=== PATIENT | male | born 1950 | race Caucasian/White ===

== ENCOUNTER → 2016-10-28 | Day surgery (SDC) | payer OTHER ==
[2016-10-15 13:20] VITALS: BMI 32.0
[~2016-10-28] VITALS: Ht 172.7 cm; Wt 95.5 kg
[~2016-10-28] MED LIST: ASPI-435 PO; CLB/200 PO; CYAN10005 PO; LIDOCAINE HCL 2% 2 ML VIAL (20MG/ML) ONE; LISI10TA PO; OMEP20TA14 PO; PROPOFOL IV EMULSION 10 MG/ML 20 ML VIAL IV ONE; SIMV20TA2 PO; SODIUM CHLORIDE 0.9% 500ML 500 ML IV ONE; TRAM-10 PO
[2016-10-28 09:47] VITALS: Ht 172.7 cm; Wt 95.5 kg
--- NOTE | 2016-10-28 10:17 | Endo History and Physical ---
History & Physical Date of Service: Oct 28, 2016. Chief Complaint: Screening Referring Physician: Dr. Treadwell History of Present Illness 66 yo CM who presents for screening colonoscopy. Past Surgical History Hx Cardiac Surgery: No Hx Internal Defibrillator: No Hx Pacemaker: No Hx Abdominal Surgery: No Hx of Implantable Prosthesis: No Hx Post-Op Nausea and Vomiting: No Hx Cancer Surgery: No Hx Thoracic Surgery: No Hx Orthopedic: No Hx Urinary Tract Surgery: No Family History None Social History Smoking Status: Former Smoker Hx Substance Use: No Hx Alcohol Use: Yes (A COUPLE BEERS DAILY) Allergies Coded Allergies: No Known Allergies (Verified , 10/28/16) Current Medications Reported Home Medications Medications Dose Route/Sig Max Daily Dose Days Date Category Ultram (Tramadol HCl) 50 Mg Tab 1-2 Tabs PO Q4H PRN 10/15/16 Reported Vitamin B-12 (Cyanocobalamin) 1,000 Mcg Tab 1,000 Mcg PO QAM 10/15/16 Reported CeleBREX (Celecoxib) 200 Mg Cap 200 Mg PO QAM 10/15/16 Reported Zocor (Simvastatin) 20 Mg Tab 20 Mg PO QAM 10/15/16 Reported Prinivil (Lisinopril) 10 Mg Tab 10 Mg PO QAM 10/15/16 Reported Aspirin 81 (Aspirin) 81 Mg Tab 1 Tab PO QAM 10/15/16 Reported Vital Signs Weight (Kilograms): 95.45 Height (Feet): 5 Height (Inches): 8 Date Time Temp Pulse Resp B/P (MAP) Pulse Ox O2 Delivery O2 Flow Rate FiO2 10/28/16 09:57 36.8 92 18 157/87 (110) 96 Room Air Physical Exam General Appearance: WD/WN, no apparent distress Respiratory/Chest: Auscultation: breath sounds normal Cardiovascular: Heart Auscultation: RRR Abdomen: Bowel Sounds: normal Inspection & Palpation: soft, non-distended, no tenderness, guarding & rebound Assessment and Plan Assessment: 66 yo CM who presents for screening colonoscopy. Plan: Proceed with colonoscopy.
--- NOTE | 2016-10-28 11:21 | GI REPORT ---
Procedure Date: 10/28/2016 10:15 AM Procedure: Colonoscopy Indications: Screening for colorectal malignant neoplasm Medicines: Monitored Anesthesia Care Complications: No immediate complications. Estimated Blood Loss: Estimated blood loss: none. Procedure: Pre-Anesthesia Assessment: - Prior to the procedure, a History and Physical was performed, and patient medications and allergies were reviewed. The patient's tolerance of previous anesthesia was also reviewed. The risks and benefits of the procedure and the sedation options and risks were discussed with the patient. All questions were answered, and informed consent was obtained. Prior Anticoagulants: The patient has taken aspirin, last dose was 1 day prior to procedure. ASA Grade Assessment: II - A patient with mild systemic disease. After reviewing the risks and benefits, the patient was deemed in satisfactory condition to undergo the procedure. After I obtained informed consent, the scope was passed under direct vision. Throughout the procedure, the patient's blood pressure, pulse, and oxygen saturations were monitored continuously. The scope was introduced through the anus and advanced to the terminal ileum. The colonoscopy was performed without difficulty. The patient tolerated the procedure well. The quality of the bowel preparation was good. The terminal ileum, the appendiceal orifice and the rectum were photographed. Findings: Two sessile polyps were found in the rectum and in the sigmoid colon. The polyps were 5 to 6 mm in size. These polyps were removed with a hot snare. Resection and retrieval were complete. Multiple small-mouthed diverticula were found in the sigmoid colon. Non-bleeding internal hemorrhoids were found during retroflexion. The hemorrhoids were small. Impression: - Two 5 to 6 mm polyps in the rectum and in the sigmoid colon, removed with a hot snare. Resected and retrieved. - Diverticulosis in the sigmoid colon. - Non-bleeding internal hemorrhoids. Recommendation: - Resume previous diet. - Continue present medications. - Repeat colonoscopy for surveillance based on pathology results. - Return to primary care physician as previously scheduled. Balaji Liang, DO 10/28/2016 11:20:34 AM This report has been signed electronically. Note Initiated On: 10/28/2016 10:15 AM I attest to the content of the Intraoperative Record and orders documented therein, exceptions below
--- NOTE | 2016-10-28 11:25 | Discharge Instructions ---
Endoscopy Patient Instructions Date / Procedure(s) Performed Oct 28, 2016. Colonoscopy Allergy Information Coded Allergies: No Known Allergies (Verified , 10/28/16) Discharge Date / Findings Oct 28, 2016. Colon polyp Rectal polyp Diverticulosis Internal hemorrhoids Medication Instructions OK to resume all medications today as prescribed Reported Home Medications Medications Dose Route/Sig Max Daily Dose Days Date Category Ultram (Tramadol HCl) 50 Mg Tab 1-2 Tabs PO Q4H PRN 10/15/16 Reported Vitamin B-12 (Cyanocobalamin) 1,000 Mcg Tab 1,000 Mcg PO QAM 10/15/16 Reported CeleBREX (Celecoxib) 200 Mg Cap 200 Mg PO QAM 10/15/16 Reported Zocor (Simvastatin) 20 Mg Tab 20 Mg PO QAM 10/15/16 Reported Prinivil (Lisinopril) 10 Mg Tab 10 Mg PO QAM 10/15/16 Reported Aspirin 81 (Aspirin) 81 Mg Tab 1 Tab PO QAM 10/15/16 Reported Provider Instructions Activity Restrictions - No exercising or heavy lifting for 24 hours. - Do not drink alcohol the day of the procedure. - Do not drive a car or operate machinery until the day after the procedure. - Do not make any important decisions or sign important papers in 24 hours after the procedure. Following Day: - Return to full activity which may include returning to work/school. Diet Start your diet with liquids and light foods (jello, soup, juice, toast). Then eat your usual diet if not nauseated. Treatment For Common After Affects For mild abdominal pain, bloating, or excessive gas: - Rest - Eat lightly - Lie on right side Follow-Up Information Follow-up with as scheduled Anesthesia Information What You Should Know You have had a procedure that required some medicine to reduce anxiety and discomfort. This treatment is called moderate sedation. After receiving the treatment, you may be sleepy, but you will be able to breathe on your own. The effects of the treatment may last for several hours. Follow these instructions along with Activity/Diet recommendations noted above: * Do NOT do anything where dizziness or clumsiness would be dangerous. * Rest quietly at home today, then you can be up and about tomorrow. * Have a responsible person stay with you the rest of today. * You may have had an I.V. today. If so, you may take the dressing off later today. Recommendations Call your doctor if: * Trouble breathing * Continuous vomiting for more than 24 hours * Temperature above 101 degrees * Severe abdominal pain or bloating * Pain not relieved by pain medicine ordered * There is increased drainage or redness from any incision * A large amount of rectal bleeding greater than 2-3 tablespoons. (If you had a polyp/s removed or have hemorrhoids, a small amount of blood - from the rectum is to be expected.) * You have any unanswered questions or concerns. IN THE EVENT OF A SERIOUS EMERGENCY, GO TO THE NEAREST EMERGENCY ROOM Your discharge instructions were prepared by provider Balaji Liang. Patient Instructions Signature Page Anastacio Rand Patient (or Guardian) Signature/Date: I have read and understand the instructions given to me by my caregivers. Caregiver/RN/Doctor Signature/Date: The above-named patient and/or guardian has received patient instructions on this date. + Original Patient Signature Page (only) stays with chart. Please make copy for patient.
[2016-10-28 11:49] VITALS: BP 140/93; PULSE 68; O2SAT 95
--- NOTE | 2016-10-28 11:56 | Anesthesiology Progress Note ---
Anesthesia Post Op Note Date & Time Oct 28, 2016 at 11:56 Vital Signs Pain Intensity: 0 Vital Signs Past 12 Hours Date Time Temp Pulse Resp B/P (MAP) Pulse Ox O2 Delivery O2 Flow Rate FiO2 10/28/16 11:49 68 16 140/93 (109) 95 Room Air 10/28/16 11:34 70 16 123/91 (102) 95 Room Air 10/28/16 11:19 72 18 123/81 (95) 95 Room Air 10/28/16 09:57 36.8 92 18 157/87 (110) 96 Room Air Notes Mental Status: alert / awake / arousable, participated in evaluation Pt Amnestic to Procedure: Yes Nausea / Vomiting: adequately controlled Pain: adequately controlled Airway Patency, RR, SpO2: stable & adequate BP & HR: stable & adequate Hydration State: stable & adequate Anesthetic Complications: no major complications apparent
== END | disposition home or self-care (01) ==
LOC: C.GI 09:25
PROVIDERS: ATTEND Internal Medicine
DX: Z12.11 Encounter for screening for malignant neoplasm of colon (principal); D12.5 Benign neoplasm of sigmoid colon; D12.8 Benign neoplasm of rectum; K64.8 Other hemorrhoids; K57.30 Diverticulosis of large intestine without perforation or abscess without bleeding; I10 Essential (primary) hypertension; E78.5 Hyperlipidemia, unspecified; E66.9 Obesity, unspecified; Z79.82 Long term (current) use of aspirin; Z87.891 Personal history of nicotine dependence

== ENCOUNTER → 2016-10-31 | Outpatient (CLI) | payer OTHER ==
[~2016-10-31] MED LIST changes: -LIDOCAINE HCL 2% 2 ML VIAL (20MG/ML) ONE; -OMEP20TA14 PO; -PROPOFOL IV EMULSION 10 MG/ML 20 ML VIAL IV ONE; -SODIUM CHLORIDE 0.9% 500ML 500 ML IV ONE
== END | disposition home or self-care (01) ==
LOC: C.LABBFT 09:08
PROVIDERS: ATTEND Internal Medicine
DX: E78.5 Hyperlipidemia, unspecified (principal)

== ENCOUNTER → 2017-05-05 | Outpatient (CLI) | payer OTHER ==
[2017-05-05 12:40] LABS: BASO % 0.2 %; BASO ABS # 0.01 K/uL (0-0.2); EOS % 1.7 %; EOS ABS # 0.08 K/uL (0-0.5); HEMATOCRIT 43.7 % (42-52); HEMOGLOBIN 14.7 g/dL (14.0-18.0); IG# 0.01 K/uL (0.00-0.02); LYMPH % 36.5 %; LYMPH ABS # 1.75 K/uL (1.2-3.4); MEAN CELL VOLUME 101.4 fL (80-100); MEAN CORPUSCULAR HEMOGLOBIN 34.1 pg (25-34); MEAN CORPUSCULAR HGB CONC 33.6 g/dl (32-36); MEAN PLATELET VOLUME 8.6 fL (7.4-10.4); MONO ABS # 0.53 K/uL (0.11-0.59); NEUT % 50.4 %; NEUT ABS # 2.42 K/uL (1.4-6.5); PLATELET COUNT 235 K/uL (130-400); RED CELL DISTRIBUTION WIDTH CV 12.7 % (11.5-14.5); RED CELL DISTRIBUTION WIDTH SD 47.3 fL (36.4-46.3)
[2017-05-05 13:53] LABS: ALBUMIN 3.8 gm/dl (3.4-5.0); ALT/SGPT 30 U/L (12-78); AST/SGOT 15 U/L (15-37); BLOOD UREA NITROGEN 11 mg/dl (7-18); CALCIUM 8.9 mg/dl (8.5-10.1); CARBON DIOXIDE 29 mmol/L (21-32); CREATININE 0.98 mg/dl (0.60-1.40); GLUCOSE 105 mg/dl (70-99); POTASSIUM 3.9 mmol/L (3.5-5.1); SODIUM 139 mmol/L (136-145)
[2017-05-05 13:57] LABS: ALKALINE PHOSPHATASE 55 U/L (45-117); TOTAL PROTEIN 7.1 gm/dl (6.4-8.2)
== END | disposition home or self-care (01) ==
LOC: C.LABBFT 09:49
PROVIDERS: ATTEND Internal Medicine
DX: N40.0 Benign prostatic hyperplasia without lower urinary tract symptoms (principal); E80.4 Gilbert syndrome; I10 Essential (primary) hypertension

== ENCOUNTER → 2017-05-12 | Outpatient (CLI) | payer OTHER ==
--- NOTE | 2017-05-23 11:34 | CODING QUERY MEDICAL NECESSITY ---
CQSUPPORTING DIAGNOSIS NEEDED A supporting diagnosis is required for the test/procedure performed on this patient in order for us to be reimbursed by the patient's insurance. Please provide a supporting diagnosis for the following test/procedure listed below next to the test name along with your signature. *If there is no additional diagnosis for this patient that would support the following test/procedure please document that below next to the test/procedure. Test(s)/Procedure(s) that require a supporting diagnosis: DOS 05/12/17 VITAMIN B12 TEST FOLIC ACID TEST Provider Signature: Date: Thank you Sima Gibson Health Information Management Once completed, please kindly fax back to [phone] For questions please call [phone]
== END | disposition home or self-care (01) ==
LOC: C.LABBFT 13:44
PROVIDERS: ATTEND Internal Medicine
DX: R19.4 Change in bowel habit (principal); R71.8 Other abnormality of red blood cells

== ENCOUNTER → 2017-05-13 | Outpatient (CLI) | payer OTHER ==
--- NOTE | 2017-05-13 15:45 | DIAGNOSTIC IMAGING REPORT ---
CHEST 2 VIEWS ROUTINE CLINICAL HISTORY: R05 [id number] COMPARISON STUDY: No previous studies for comparison. FINDINGS: The cardiac and mediastinal contours are normal. There is no evidence of focal pulmonary consolidation. There is no evidence of failure. No pleural effusions are visualized.[ There are multiple old right-sided rib fractures. IMPRESSION: No active disease in the chest. Electronically signed by: Dennis Blair M.D. 05/13/2017 3:43 PM Dictated Date/Time: 05/13/2017 3:43 PM
== END | disposition home or self-care (01) ==
LOC: C.RAD1850 15:23
PROVIDERS: ATTEND Internal Medicine
DX: R05 Cough (principal)

== ENCOUNTER 2018-06-20 01:12 | Inpatient (IN) ==
[2018-06-20] MEDS ORDERED: SODIUM CHLORIDE 0.9% 1000ML 1,000 ML IV SCH (01:45)
[2018-06-20 01:59] LABS: Basophils # (auto) 0.02 K/uL (0-0.2); Basophils % (auto) 0.3 %; Eosinophils # (auto) 0.11 K/uL (0-0.5); Eosinophils % (auto) 1.7 %; Hematocrit (blood only) 37.2 % (42-52); Hemoglobin 12.9 g/dL (14.0-18.0); Immature Granulocytes # (auto) 0.01 K/uL (0.00-0.02); Immature Granulocytes % (auto) 0.2 %; Lymphocytes # (auto) 1.66 K/uL (1.2-3.4); Lymphocytes % (auto) 25.7 %; Mean Corpuscular Hgb Conc 34.7 g/dL (32-36); Mean Corpuscular Volume 98.7 fL (80-100); Mean Platelet Volume 8.3 fL (7.4-10.4); Monocytes # (auto) 0.94 K/uL (0.11-0.59); Monocytes % (auto) 14.5 %; Neutrophils # (auto) 3.73 K/uL (1.4-6.5); Neutrophils % (auto) 57.6 %; Platelet Count 190 K/uL (130-400); RDW Coefficient of Variation 12.7 % (11.5-14.5); Red Blood Count 3.77 M/uL (4.7-6.1); White Blood Count 6.47 K/uL (4.8-10.8)
[2018-06-20 02:31] LABS: Albumin Level 3.9 gm/dl (3.4-5.0); BUN Creatinine Ratio 9.8 (10-20); Bilirubin Direct 0.4 mg/dl (0-0.2); Bilirubin,Total 2.1 mg/dl (0.2-1); Calcium 8.3 mg/dl (8.5-10.1); Creatinine Clr Calc Pharmacy 18.1 ml/min; Est GFR (African American) 14.6; Est GFR (Non-African American) 12.6; Magnesium 2.4 mg/dl (1.8-2.4); Potassium 3.9 mmol/L (3.5-5.1); Total Protein 7.4 gm/dl (6.4-8.2); Troponin I 0.129 ng/ml (0-0.045)
[2018-06-20] MEDS ORDERED: SODIUM CHLORIDE 0.9% 1000ML 1,000 ML IV ONE ×4 (02:32→04:58)
--- NOTE | 2018-06-20 04:05 | History & Physical Report ---
Date of Service June 20, 2018 Assessment & Plan (1) HTN (hypertension): (2) HLD (hyperlipidemia): (3) Elevated PSA: (4) History of prostate biopsy: (5) Anuria: 67-year-old male with history of elevated PSA with prostate biopsy on June 16, hypertension, hyperlipidemia presents with concern for trouble urinating today. Acute kidney injury likely secondary to dehydration and prerenal versus prostatitis (post renal) Patient is anuric today Had prostate biopsy on June 16 following which he had normal urine output Today and yesterday he did extensive yard work in warm weather and noted lightheadedness and sweating Patient reports hydrating well but appears very dry on exam No prior history of kidney disease BUN/creatinine 44/4.5 UA/urine culture pending Renal ultrasound pending Bladder scan in the ED did not note any urine in bladder Received 1 L of normal saline in the ED Normal saline bolus 2 L ordered Continue IV fluids NS at 150 cc/h Monitor BMP Nephrology consult Urethral bleeding status post prostate biopsy on 06/16 for elevated PSA Patient reports some hematuria which cleared after biopsy He did not have any trouble urinating until today Today in the emergency room had some bleeding but no urine Renal ultrasound pending Continue ciprofloxacin 500 twice daily convert to IV Continue tramadol 50 every 4 H PRN Hold Celebrex in the setting of RODO Urology consulted Elevated troponin likely demand ischemia in the setting of significant dehydration versus decreased clearance in the setting of RODO versus possible pericarditis in the setting of uremia Patient asymptomatic no shortness of breath or chest pain EKG normal sinus rhythm no ST or T wave changes rate 80 QTC 456, slightly elevated MO interval of 202 Troponin elevated at 0.129 Trend troponin every 6 H x3 Monitor on telemetry Cardiology consult Hypertension/hyperlipidemia Hold losartan in the setting of RODO Continue simvastatin Diet: N.p.o. for possible procedure DVT prophylaxis SCD, low risk encourage ambulation, chemical contraindicated Code full Disposition PCU telemetry History of Present Illness Chief Complaint: Anuria Primary Care Provider: Alvarez Treadwell MD 67-year-old male with history of elevated PSA with prostate biopsy on June 16, hypertension, hyperlipidemia presents with concern for trouble urinating today. Patient reports prostate biopsy on June 16 for concern of elevated PSA. Afterwards he was urinating and had no trouble until today. Reports sweating profusely today and yesterday while doing extensive yard work. Patient worked at his yard for 5 hours today. Reports some dizziness while doing yard work t keron. reports trying to stay well-hydrated he had 4 bottles of 16 ounce water and 1 bottle of 16 ounce Gatorade. Pt was also on Celebrex and losartan. he denies any sense of urgency or hesitancy. He had an episode of urinary bleeding in the emergency room but no urine output. Denies any abdominal discomfort, nausea vomiting, fever chills, headache, dizziness, chest pain, shortness of breath. Denies any previous cardiac history or strokes. Of note reports occasional right-sided flank pressure in the past 1 year but none at the moment Social history: Patient drinks 3-4 beers per day, smoked for 2 to 3 years 1 pack/day but quit 40 years ago, no occasional drug use, patient is a retired pharmacist Surgical history: Tonsillectomy Allergies Allergy/AdvReac Type Severity Reaction Status Date / Time No Known Allergies Allergy Verified 06/20/18 03:32 Home Medications Home Medications Medication Instructions Recorded Confirmed Type celecoxib [Celebrex] 200 mg PO DAILY 06/20/18 06/20/18 History ciprofloxacin HCl 500 mg PO Q12H 06/20/18 06/20/18 History losartan 100 mg PO DAILY 06/20/18 06/20/18 History simvastatin 20 mg PO DAILY 06/20/18 06/20/18 History tramadol 50 - 100 mg PO Q4 PRN 06/20/18 06/20/18 History Past Med/Surg History Social History Preferred Language: Albanian Communication Ability: Effective Health Information Tech Required: No Beliefs That Will Affect Care: None Current Living Situation: Spouse Other Information That Helps Us Care for You: No Feels Safe at Home: Yes Safety Concerns: Feels Safe At This Time Smoking Status: Never smoker Do You Dip or Chew Tobacco: No Second Hand Exposure: No Tobacco Cessation Education Requested by Patient: No Hx Alcohol Use: Yes Alcohol type: beer Hx Substance Use: No Review of Systems Review of Systems: As per HPI Physical Exam Physical Exam: General: In NAD, pleasant CV: RRR, no m/r/g PULM: CTAB equal breath sounds bilaterally ABDOMEN: +BS, non-distended, non-tender to palpation in all quadrants Back: No CVA tenderness LE: no calf TTP, no LE edema Results & Data Vital Signs (Past 12 Hours) Vital Signs Temp Pulse Pulse Resp BP BP Pulse Ox 06/20/18 03:07 80 16 134/78 98 06/20/18 01:23 37 C 92 H 20 128/79 97 Laboratory Results Abnormal lab results 06/20/18 06/20/18 Range/Units 01:45 01:48 RBC 3.77 L (4.7-6.1) M/uL Hgb 12.9 L (14.0-18.0) g/dL Hct 37.2 L (42-52) % MCH 34.2 H (25-34) pg Pope # (Auto) 0.94 H (0.11-0.59) K/uL Sodium 135 L (136-145) mmol/L Carbon Dioxide 19 L (21-32) mmol/L BUN 44 H (7-18) mg/dl Creatinine 4.51 H* (0.6-1.4) mg/dl BUN/Creatinine Ratio 9.8 L (10-20) Glucose 108 H (70-99) mg/dl Calcium 8.3 L (8.5-10.1) mg/dl Total Bilirubin 2.1 H (0.2-1) mg/dl Direct Bilirubin 0.4 H (0-0.2) mg/dl Troponin I 0.129 H* (0-0.045) ng/ml Code Status & VTE Plan Code Status Full discussed with patient and VTE Prophylaxis Plan VTE Prophylaxis will be ordered: Yes Supervising Physician Co-Signing Physician Notes Attending addendum: I have physically seen this patient, have supervised the medical residents activities, and agree with the H&P unless as otherwise noted. Assessment and Plan: Prostatitis/sepsis/status post recent prostate biopsy on 06/16/RODO- Cipro 400 mg IV twice daily. Tramadol 50 mg p.o. every 4 hours as needed moderate pain. Hold Celebrex. IV fluids. Full result renal ultrasound. Serial CBC with differential, chemistry profile and magnesium levels. Follow blood cultures. Follow urine culture and sensitivity.' Consult urology. Remainder of orders and notations as noted. Resident Activity Tracking Resident Involvement: Resident Care Provided Care Provided: [facility]
[2018-06-20] MEDS ORDERED: ONDANSETRON INJ 2 MG/ML 2 ML VIAL IV PRN (04:58)
[2018-06-20] MEDS ORDERED: TRAMADOL HCL 50 MG TABLET PO PRN (04:58)
[2018-06-20] MEDS ORDERED: ACETAMINOPHEN 325 MG TAB PO PRN (04:58)
[2018-06-20] MEDS ORDERED: CIPROFLOXACIN 400 MG/200 ML BAG IV SCH (06:00)
[2018-06-20 06:20] LABS: Appearance Urine Cloudy (Clear); Bacteria Urine Automated Negative (Negative); Bilirubin Urine Negative (Negative); Blood Urine 3+ (Negative); Color Urine Red; Glucose Urine UA Negative (Negative); Ketones Urine Trace (Negative); Leukocyte Esterase Urine 1+ (Negative); Nitrite Urine Negative (Negative); Protein Urine 2+ (Negative); RBC Urine Automated >30 /hpf (0-4); Specific Gravity Urine 1.017 (1.000-1.030); Urobilinogen Urine Negative (Negative)
[2018-06-20] MEDS: SODIUM CHLORIDE 0.9% 1000ML 1,000 ML IV SCH ×3 (07:51→21:36)
[2018-06-20] MEDS: SIMVASTATIN 20 MG TAB PO SCH (07:51)
--- NOTE | 2018-06-20 07:54 | Emergency Department Note ---
Entered by Jordon Lewis acting as a scribe for ED Provider Note Name: Anastacio Rand Age: 67 Arrives Via: Private Vehicle Informant: Patient CC: Unable to Void HPI: A male arrives for evaluation because he is unable to void. The patient states he had a prostate biopsy by Dr. Hobson. He states the doctor told him to call him if he had a fever over 101 and if he was unable to void. He states he was working yesterday and was getting tired really fast. He states he has weakness. He notes he drank 64 oz of water today and had a couple beers. He states he has not urinated since this morning. He notes he tried to urinate before coming to the ED but just urinated blood. He notes he does not have any pain. He states he has some SOB. He denies chest pain, diarrhea, leg swelling, and black or bloody stools. He notes he has a cyst on his kidney. He states he fell a week ago but did not hit his head and notes it was not anything major. ROS: See above HPI for pertinent positives & negatives. A total of 10 systems reviewed and were otherwise negative. Past Medical History: No pertinent medical history. Past Surgical History: No pertinent surgical history. Family History: Non-contributory family history. Social History: Former smoker. Home Medications: Aspirin, celecoxib, cyanocobalamin, lisinopril, simvastatin, tramadol. Allergies No Known allergies Physical: Vitals: BP: 128/79. P: 92. R: 20. T: 98.6. O2: 97 Exam: GENERAL: Patient is tired appearing and in no acute distress. Patient is sunburnt. EYES: No scleral icterus, unremarkable pupils. ENT: Mucous membranes moist, no nasal congestion. NECK: No masses appreciated, no meningismus, trachea is midline. RESPIRATORY: No dyspnea. Clear to auscultation and equal bilaterally. No wheeze, no rhonchi. CARDIOVASCULAR: Regular rate and rhythm. No murmurs, rubs, gallops appreciated. GASTROINTESTINAL: Abdomen soft, non-tender, no peritonitis. Bowel sounds positive. No masses appreciated. BACK: No midline tenderness, no CVA tenderness EXTREMITIES: Normal motion all extremities, no cyanosis, no edema. NEUROLOGIC: Alert and oriented, no acute motor or sensory deficits, no focal weakness, cranial nerves grossly intact. SKIN: No rash, no jaundice, no diaphoresis. ED Course: Prior Medical Record, Triage/Nursing Notes, Medications, Allergies reviewed by Me Vital Signs: reviewed and remarkable for wnl Labs: Reviewed and remarkable for elevated Cr, mild trop elevation Interventions: Saline Lock, NSS bolus & gtt Imaging: X ray results are stated below per my interpretation: Chest: 1 view: No infiltrate, no effusion, normal cardiac border. EKG: Per My Interpretation: Indication Weakness: NSR 80 bpm without ectopy nor ischemia. QTC 456. No previous for comparison. Consults: 0245: I consulted with Dr. Enriquez regarding this patient. He will evaluate the patient for further care. Reassessments/Times: 0125: The patient was evaluated in room B4, and a complete history and physical examination were performed. 0320: I had a long discussion with the patient and his . They are agreeable to inpatient treatment. Blood pressure: Normal. No Referral necessary Disposition: Hospitalization Differentials: Differential: Sepsis, Infectious (UTI/Pneumonia/Meningitis/etc), Metabolic/Electrolyte Abnormality, Cardiac, Dehydration, Anemia, Hepatic, Endocrine, Toxicologic, Neurologic, amongst other pathologies entertained. Medical Decision Making: Pleasant 67 yr old male with recent prostate biopsy who notes that he hasn't urinated in the last 12+ hours. Bedside US by me with minimal urine in bladder. Labs consistent with acute renal failure. Use of NSAIDs, with ARB and his heat exhaustion yesterday likely precipitating events. Hydrated. He is not in rhabdo. He has mild trop elevation which I suspect is renal failure related and not ACS. No evidence PE by exam. Without abdominal nor flank pain I do not feel that emergent abdominal imaging necessary. Hospitalist in to evaluate further. Impression: Acute Renal Failure Bennie Allison MD The scribe's documentation has been prepared under my direction and personally reviewed by me in its entirety. I confirm that the note above accurately reflects all work, treatment, procedures, and medical decision making performed by me. Impression & Plan Acute renal failure Past Med/Surg History Social History Preferred Language: Italian Communication Ability: Effective Senior Tax Analyst Required: No Beliefs That Will Affect Care: None Current Living Situation: Spouse Other Information That Helps Us Care for You: No Feels Safe at Home: Yes Safety Concerns: Feels Safe At This Time Smoking Status: Never smoker Do You Dip or Chew Tobacco: No Second Hand Exposure: No Tobacco Cessation Education Requested by Patient: No Hx Alcohol Use: Yes Alcohol type: beer Hx Substance Use: No Results & Data Vital Signs Vital Signs - 24 hr 06/20/18 01:23 06/20/18 03:07 06/20/18 04:48 Temperature 37 C 36.6 C Temperature Source Oral Oral Sepsis Recent Fever Within 48 Hours No Sepsis Action Taken by Nursing No Action Required Pulse Rate 92 H Pulse Rate [Apical] 85 Pulse Rate [Right Finger] 80 Pulse Rhythm [Right Finger] Regular Respiratory Rate 20 16 20 Respiratory Effort / Characteristics Non-Labored Non-Labored Spontaneous Non-Labored Spontaneous Respiratory Depth Normal Normal Normal Respiratory Pattern Regular Blood Pressure 128/79 Blood Pressure [Right Arm] 134/78 146/94 H Blood Pressure Mean 95 Blood Pressure Mean [Right Arm] 96 111 Blood Pressure Position Sitting Blood Pressure Position [Right Arm] Pulse Oximetry 97 98 97 Oxygen Delivery Method Room Air Room Air Room Air 06/20/18 07:04 Temperature 36.7 C Temperature Source Oral Sepsis Recent Fever Within 48 Hours Sepsis Action Taken by Nursing Pulse Rate Pulse Rate [Apical] 78 Pulse Rate [Right Finger] Pulse Rhythm [Right Finger] Respiratory Rate 18 Respiratory Effort / Characteristics Respiratory Depth Respiratory Pattern Blood Pressure Blood Pressure [Right Arm] 126/70 Blood Pressure Mean Blood Pressure Mean [Right Arm] 88 Blood Pressure Position Blood Pressure Position [Right Arm] Lying Pulse Oximetry 96 Oxygen Delivery Method Room Air Laboratory Data Result diagrams: 06/20/18 01:48 06/20/18 01:45 Lab Results 06/20/18 06/20/18 06/20/18 Range/Units 01:45 01:48 01:48 WBC 6.47 (4.8-10.8) K/uL RBC 3.77 L (4.7-6.1) M/uL Hgb 12.9 L (14.0-18.0) g/dL Hct 37.2 L (42-52) % MCV 98.7 (80-100) fL MCH 34.2 H (25-34) pg MCHC 34.7 (32-36) g/dL RDW Std Deviation 46.0 (36.4-46.3) fL RDW Coeff of Myriam 12.7 (11.5-14.5) % Plt Count 190 (130-400) K/uL MPV 8.3 (7.4-10.4) fL Immature Gran % (Auto) 0.2 % Neut % (Auto) 57.6 % Lymph % (Auto) 25.7 % [place] % (Auto) 14.5 % Eos % (Auto) 1.7 % Baso % (Auto) 0.3 % Immature Gran # (Auto) 0.01 (0.00-0.02) K/uL Neut # (Auto) 3.73 (1.4-6.5) K/uL Lymph # (Auto) 1.66 (1.2-3.4) K/uL [place] # (Auto) 0.94 H (0.11-0.59) K/uL Eos # (Auto) 0.11 (0-0.5) K/uL Baso # (Auto) 0.02 (0-0.2) K/uL Sodium 135 L (136-145) mmol/L Potassium 3.9 (3.5-5.1) mmol/L Chloride 105 (98-107) mmol/L Carbon Dioxide 19 L (21-32) mmol/L Anion Gap 11.0 (3-11) BUN 44 H (7-18) mg/dl Creatinine 4.51 H* (0.6-1.4) mg/dl Est Cr Clr Drug Dosing 18.1 ml/min Est GFR ( Amer) 14.6 Est GFR (Non-Af Amer) 12.6 BUN/Creatinine Ratio 9.8 L (10-20) Glucose 108 H (70-99) mg/dl Lactate 0.9 (0.4-2.0) mmol/L Calcium 8.3 L (8.5-10.1) mg/dl Magnesium 2.4 (1.8-2.4) mg/dl Total Bilirubin 2.1 H (0.2-1) mg/dl Direct Bilirubin 0.4 H (0-0.2) mg/dl AST 15 (15-37) U/L ALT 30 (12-78) U/L Alkaline Phosphatase 58 (45-117) U/L Total Creatine Kinase 187 (39-308) U/L Troponin I 0.129 H* (0-0.045) ng/ml Total Protein 7.4 (6.4-8.2) gm/dl Albumin 3.9 (3.4-5.0) gm/dl Urine Color Urine Appearance (Clear) Urine pH (4.5-7.5) Ur Specific [place] (1.000-1.030) Urine Protein (Negative) Urine Glucose (UA) (Negative) Urine Ketones (Negative) Urine Blood (Negative) Urine Nitrite (Negative) Urine Bilirubin (Negative) Urine Urobilinogen (Negative) Ur Leukocyte Esterase (Negative) Urine WBC (Auto) (0-5) /hpf Urine RBC (Auto) (0-4) /hpf U Hyaline Cast (Auto) (0-5) /lpf U Epithel Cells (Auto) (0-5) /lpf Urine Bacteria (Auto) (Negative) 06/20/18 Range/Units 05:50 WBC (4.8-10.8) K/uL RBC (4.7-6.1) M/uL Hgb (14.0-18.0) g/dL Hct (42-52) % MCV (80-100) fL MCH (25-34) pg MCHC (32-36) g/dL RDW Std Deviation (36.4-46.3) fL RDW Coeff of Myriam (11.5-14.5) % Plt Count (130-400) K/uL MPV (7.4-10.4) fL Immature Gran % (Auto) % Neut % (Auto) % Lymph % (Auto) % [place] % (Auto) % Eos % (Auto) % Baso % (Auto) % Immature Gran # (Auto) (0.00-0.02) K/uL Neut # (Auto) (1.4-6.5) K/uL Lymph # (Auto) (1.2-3.4) K/uL [place] # (Auto) (0.11-0.59) K/uL Eos # (Auto) (0-0.5) K/uL Baso # (Auto) (0-0.2) K/uL Sodium (136-145) mmol/L Potassium (3.5-5.1) mmol/L Chloride (98-107) mmol/L Carbon Dioxide (21-32) mmol/L Anion Gap (3-11) BUN (7-18) mg/dl Creatinine (0.6-1.4) mg/dl Est Cr Clr Drug Dosing ml/min Est GFR ( Amer) Est GFR (Non-Af Amer) BUN/Creatinine Ratio (10-20) Glucose (70-99) mg/dl Lactate (0.4-2.0) mmol/L Calcium (8.5-10.1) mg/dl Magnesium (1.8-2.4) mg/dl Total Bilirubin (0.2-1) mg/dl Direct Bilirubin (0-0.2) mg/dl AST (15-37) U/L ALT (12-78) U/L Alkaline Phosphatase (45-117) U/L Total Creatine Kinase (39-308) U/L Troponin I (0-0.045) ng/ml Total Protein (6.4-8.2) gm/dl Albumin (3.4-5.0) gm/dl Urine Color Red Urine Appearance Cloudy A (Clear) Urine pH 5.0 (4.5-7.5) Ur Specific [place] 1.017 (1.000-1.030) Urine Protein 2+ H (Negative) Urine Glucose (UA) Negative (Negative) Urine Ketones Trace H (Negative) Urine Blood 3+ H (Negative) Urine Nitrite Negative (Negative) Urine Bilirubin Negative (Negative) Urine Urobilinogen Negative (Negative) Ur Leukocyte Esterase 1+ H (Negative) Urine WBC (Auto) 5-10 H (0-5) /hpf Urine RBC (Auto) >30 H (0-4) /hpf U Hyaline Cast (Auto) 5-10 H (0-5) /lpf U Epithel Cells (Auto) 10-20 H (0-5) /lpf Urine Bacteria (Auto) Negative (Negative) Administered Medications Sodium Chloride (Nss 1000ml) 1,000 mls @ 150 mls/hr IV .Q6H40M [facility] Stop: 07/20/18 04:57 Last Admin: 06/20/18 07:51 Dose: 150 mls/hr Documented by: [id number] Ciprofloxacin (Cipro) 400 mg in 200 mls @ 100 mls/hr IV Q12H [facility] Stop: 06/30/18 05:59 Last Infusion: 06/20/18 07:47 Dose: 0 mls/hr Documented by: [id number] Admin: 06/20/18 05:30 Dose: 100 mls/hr Documented by: [id number] Simvastatin (Zocor) 20 mg PO DAILY [facility] Stop: 07/20/18 08:59 Last Admin: 06/20/18 07:51 Dose: 20 mg Documented by: [id number] Discontinued Medications Sodium Chloride (Nss 1000ml) 1,000 mls @ 125 mls/hr IV .Q8H [facility] Stop: 07/20/18 01:44 Last Admin: 06/20/18 01:59 Dose: 125 mls/hr Documented by: [id number] Sodium Chloride (Nss 1000ml) 1,000 mls @ 999 mls/hr IV .Q1H1M [facility] Stop: 06/20/18 03:32 Last Infusion: 06/20/18 03:15 Dose: 0 mls/hr Documented by: [id number] Admin: 06/20/18 02:36 Dose: 999 mls/hr Documented by: [id number] Sodium Chloride (Nss 1000ml) 1,000 mls @ 999 mls/hr IV .Q1H1M ONE Stop: 06/20/18 05:58 Last Admin: 06/20/18 05:29 Dose: Not Given Documented by: [id number] Sodium Chloride (Nss 1000ml) 1,000 mls @ 500 mls/hr IV .Q2H ONE Stop: 06/20/18 06:57 Last Admin: 06/20/18 05:29 Dose: 500 mls/hr Documented by: [id number] Discharge Plan Visit Data *Final* Discharge Date/Time: 06/20/18 04:31 Chief Complaint: Unable to Void Stated Complaint: UNABLE TO VOID ED Provider: Bennie Allison Discharge Problem: Acute renal failure Patient Disposition: Admitted As Inpatient Discharge Instructions Interventions: ED Discharge Assessment Last Done: 06/20/18 04:31 Discharge Problem: Acute renal failure Qualifiers: Acute renal failure type: unspecified Qualified Code(s): N17.9 - Acute kidney failure, unspecified The scribe's documentation has been prepared under my direction and personally reviewed by me in its entirety. I confirm that the note above accurately reflects all work, treatment, procedures, and medical decision making performed by me.
--- NOTE | 2018-06-20 08:06 | Ultrasound Report ---
RENAL ULTRASOUND CLINICAL HISTORY: anuric, prostate biopsy on 06/16 COMPARISON STUDY: CT of the abdomen and pelvis December 24, 2017. TECHNIQUE: Sonography of the kidneys and the urinary bladder was performed. FINDINGS: There is no hydronephrosis. Tubular anechoic structures within the left renal sinus is felt to likely reflect parapelvic cysts. The right kidney measures 11.3 x 5.3 x 4.6 cm and the left measu res 12.2 x 6.9 x 5.1 cm. Both ureteral jets were identified. Renal echogenicity, size and cortical th ickness are normal. Note is made of a 5 mm echogenic focus along the left posterior aspect of the bryce dder. IMPRESSION: 1. No hydronephrosis. This finding will be called to the ordering physician given discrepancy with th e preliminary report. 2. 5 mm echogenic focus along the left posterior aspect of the bladder. This could reflect a calculus or artifact. Electronically signed by: Valdemar Miller M.D. 06/20/2018 8:05 AM
[2018-06-20 08:41] LABS: BUN Creatinine Ratio 10.7 (10-20); Calcium 7.7 mg/dl (8.5-10.1); Creatinine Clr Calc Pharmacy 20.1 ml/min; Est GFR (African American) 16.4; Est GFR (Non-African American) 14.2; Potassium 4.1 mmol/L (3.5-5.1)
--- NOTE | 2018-06-20 09:36 | Cardiology Consultation ---
Date of Consultation June 20, 2018 Assessment & Plan (1) Elevated troponin: He has a slightly elevated troponin and it is in a descending pattern so I do not think we have to be concerned about an acute cardiac event. It is possible that the elevated troponin is simply due to excessive activity and renal insufficiency, however I am a little bit bothered by his symptoms of fatigue which are unusual for him. I would not do anything with the troponin now, I would certainly not consider invasive evaluation with his elevated creatinine but I would follow the trend a little bit longer. (2) Fatigue: He describes exertional fatigue which is much more prominent this year than last year when he did the same thing. He thinks it might be deconditioning and being hot and humid, however he did not have this difficulty last year and he does have a lot of risk factors for coronary artery disease. Is certainly possible that he has had progressive coronary disease and that the symptoms represent an anginal equivalent, and the slight troponin elevation was due to demand ischemia. That would not change my approach this hospitalization (evaluation and treatment of his acute renal failure) however if he needs surgery or in the near future as an outpatient I would recommend stress testing to exclude significant ischemia. I would recommend ongoing risk factor management. History of Present Illness Reason for Consultation: Elevated troponin Attending Physician: Jaguar Tejada, History of Present Illness This is a 67-year-old male with a history of hypertension, hyperlipidemia, prior smoker, who also has had difficulty with GI symptoms GI bleeding to my knowledge. He also has a rising PSA as well as Gilbert's disease, prediabetes and DJD. 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 Laboratory studies however suggested acute renal failure not urinary retention (creatinine was 4.5 this morning at 1:45 AM, 1.05 on April 07, 2018). In addition his troponin was slightly elevated, although that is in a descending pattern. He describes doing a lot of work around his yard which was quite strenuous for several days preceding his admission this morning. He noted that he was quite fatigued doing it, much more so than he expected and much more so than last year. He tells me he could only work for about 10 minutes then he had to rest for about 10 minutes, this is unusual for him. He did not have chest discomfort however and he really did not have shortness of breath, just a rundown feeling. He describes it as "out of gas". This morning he feels well in that regard but has been at rest. Allergies Allergy/AdvReac Type Severity Reaction Status Date / Time No Known Allergies Allergy Verified 06/20/18 03:32 Home Medications Home Medications Medication Instructions Recorded Confirmed Type celecoxib [Celebrex] 200 mg PO DAILY 06/20/18 06/20/18 History ciprofloxacin HCl 500 mg PO Q12H 06/20/18 06/20/18 History losartan 100 mg PO DAILY 06/20/18 06/20/18 History simvastatin 20 mg PO DAILY 06/20/18 06/20/18 History tramadol 50 - 100 mg PO Q4 PRN 06/20/18 06/20/18 History Patient History Social History Preferred Language: Armenian Communication Ability: Effective Sociology Instructor Required: No Beliefs That Will Affect Care: None Current Living Situation: Spouse Other Information That Helps Us Care for You: No Feels Safe at Home: Yes Safety Concerns: Feels Safe At This Time Smoking Status: Never smoker Do You Dip or Chew Tobacco: No Second Hand Exposure: No Tobacco Cessation Education Requested by Patient: No Hx Alcohol Use: Yes Alcohol type: beer Hx Substance Use: No Review of Systems Review of Systems: All systems reviewed & are unremarkable except as noted in HPI & below Physical Exam Physical Exam: Constitutional: Alert, cooperative and in no distress. HEENT: Unremarkable Neck: No jugular venous distention, carotid pulses are normal and equal bilaterally without bruits. Pulmonary: Clear to auscultation bilaterally. Cardiac: Regular rhythm with no murmur, gallop or rub. Abdomen: Soft, nontender with normal bowel sounds. Extremities: No edema. Distal pulses intact. Neurologic: No focal findings. Gait is steady. Skin: No rash, ecchymoses or petechiae. Results & Data Vital Signs (Past 12 Hours) Vital Signs Temp Pulse Pulse Pulse Resp BP BP 06/20/18 08:00 95 H 06/20/18 07:04 36.7 C 78 18 126/70 06/20/18 04:48 36.6 C 85 20 146/94 H 06/20/18 03:07 80 16 134/78 06/20/18 01:23 37 C 92 H 20 128/79 Pulse Ox 06/20/18 08:00 06/20/18 07:04 96 06/20/18 04:48 97 06/20/18 03:07 98 06/20/18 01:23 97 Diagnostic Findings Electrocardiogram: On admission sinus rhythm, normal ECG without acute changes Telemetry: Sinus rhythm, no significant abnormality
--- NOTE | 2018-06-20 09:48 | XRay Report ---
XR chest 1V portable CLINICAL HISTORY: Post op weakness, shortness of breath COMPARISON STUDY: Chest radiograph May 13, 2017. FINDINGS: Incidental note is made of multiple old right rib fractures. There is no pneumothorax or pl eural effusion. There is no consolidation or evidence for pulmonary edema. Cardiomediastinal silhouet te is normal. IMPRESSION: No acute cardiopulmonary findings. Electronically signed by: Valdemar Miller M.D. 06/20/2018 9:47 AM
--- NOTE | 2018-06-20 11:02 | Urology Consultation ---
Date of Consultation June 20, 2018 Assessment & Plan (1) Acute renal failure: Assessment Acute renal failure Patient is starting to make urine now that he has become more hydrated. Urine in the urinal is very light pink I do not believe the biopsy had anything to do with the acute renal failure. I think the patient was probably dehydrated from working outside the last 2 days in the heat and not taking in much fluids No urologic intervention needed Would continue to hydrate patient We will start him on a diet Follow-up with Dr. Hobson as planned to go over the results of the prostate biopsy History of Present Illness Attending Physician: Jaguar Tejada DO History of Present Illness Patient is a 67-year-old white male who underwent a prostate biopsy 5 days ago. He was fine up until yesterday when he became anuric. Patient said he had been working outside a lot the last few days. Prior to this he was voiding fine. He came to the emergency room was found to have an elevated creatinine and troponin. He said no chest pain. No nausea or vomiting Allergies Allergy/AdvReac Type Severity Reaction Status Date / Time No Known Allergies Allergy Verified 06/20/18 03:32 Home Medications Home Medications Medication Instructions Recorded Confirmed Type celecoxib [Celebrex] 200 mg PO DAILY 06/20/18 06/20/18 History ciprofloxacin HCl 500 mg PO Q12H 06/20/18 06/20/18 History losartan 100 mg PO DAILY 06/20/18 06/20/18 History simvastatin 20 mg PO DAILY 06/20/18 06/20/18 History tramadol 50 - 100 mg PO Q4 PRN 06/20/18 06/20/18 History Patient History Social History Preferred Language: Tajik Communication Ability: Effective Senior Service Aide Required: No Beliefs That Will Affect Care: None Current Living Situation: Spouse Other Information That Helps Us Care for You: No Feels Safe at Home: Yes Safety Concerns: Feels Safe At This Time Smoking Status: Never smoker Do You Dip or Chew Tobacco: No Second Hand Exposure: No Tobacco Cessation Education Requested by Patient: No Hx Alcohol Use: Yes Alcohol type: beer Hx Substance Use: No Physical Exam Physical Exam: Patient is a well-developed well-nourished white male in no acute distress Neurologically he is alert and oriented x3 Abdomen soft nontender Normal respiratory effort Extremities without calf pain or edema Results & Data Vital Signs (Past 12 Hours) Vital Signs Temp Pulse Pulse Pulse Resp BP BP 06/20/18 08:00 95 H 06/20/18 07:04 36.7 C 78 18 126/70 06/20/18 04:48 36.6 C 85 20 146/94 H 06/20/18 03:07 80 16 134/78 06/20/18 01:23 37 C 92 H 20 128/79 Pulse Ox 06/20/18 08:00 06/20/18 07:04 96 06/20/18 04:48 97 06/20/18 03:07 98 06/20/18 01:23 97 Laboratory Results Laboratory Results - last 24 hr 06/20/18 06/20/18 06/20/18 01:45 01:48 01:48 WBC 6.47 RBC 3.77 L Hgb 12.9 L Hct 37.2 L MCV 98.7 MCH 34.2 H MCHC 34.7 RDW Std Deviation 46.0 RDW Coeff of Myriam 12.7 Plt Count 190 MPV 8.3 Immature Gran % (Auto) 0.2 Neut % (Auto) 57.6 Lymph % (Auto) 25.7 [place] % (Auto) 14.5 Eos % (Auto) 1.7 Baso % (Auto) 0.3 Immature Gran # (Auto) 0.01 Neut # (Auto) 3.73 Lymph # (Auto) 1.66 [place] # (Auto) 0.94 H Eos # (Auto) 0.11 Baso # (Auto) 0.02 Sodium 135 L Potassium 3.9 Chloride 105 Carbon Dioxide 19 L Anion Gap 11.0 BUN 44 H Creatinine 4.51 H* Est Cr Clr Drug Dosing 18.1 Est GFR ( Amer) 14.6 Est GFR (Non-Af Amer) 12.6 BUN/Creatinine Ratio 9.8 L Glucose 108 H Lactate 0.9 Calcium 8.3 L Magnesium 2.4 Total Bilirubin 2.1 H Direct Bilirubin 0.4 H AST 15 ALT 30 Alkaline Phosphatase 58 Total Creatine Kinase 187 Troponin I 0.129 H* Total Protein 7.4 Albumin 3.9 Urine Color Urine Appearance Urine pH Ur Specific [place] Urine Protein Urine Glucose (UA) Urine Ketones Urine Blood Urine Nitrite Urine Bilirubin Urine Urobilinogen Ur Leukocyte Esterase Urine WBC (Auto) Urine RBC (Auto) U Hyaline Cast (Auto) U Epithel Cells (Auto) Urine Bacteria (Auto) Hepatitis C Ab Screen 06/20/18 06/20/18 06/20/18 05:50 07:53 07:53 WBC RBC Hgb Hct MCV MCH MCHC RDW Std Deviation RDW Coeff of Myriam Plt Count MPV Immature Gran % (Auto) Neut % (Auto) Lymph % (Auto) [place] % (Auto) Eos % (Auto) Baso % (Auto) Immature Gran # (Auto) Neut # (Auto) Lymph # (Auto) [place] # (Auto) Eos # (Auto) Baso # (Auto) Sodium 138 Potassium 4.1 Chloride 110 H Carbon Dioxide 17 L Anion Gap 11.0 BUN 44 H Creatinine 4.10 H D Est Cr Clr Drug Dosing 20.1 Est GFR ( Amer) 16.4 Est GFR (Non-Af Amer) 14.2 BUN/Creatinine Ratio 10.7 Glucose 108 H Lactate Calcium 7.7 L Magnesium Total Bilirubin Direct Bilirubin AST ALT Alkaline Phosphatase Total Creatine Kinase Troponin I Total Protein Albumin Urine Color Red Urine Appearance Cloudy A Urine pH 5.0 Ur Specific [place] 1.017 Urine Protein 2+ H Urine Glucose (UA) Negative Urine Ketones Trace H Urine Blood 3+ H Urine Nitrite Negative Urine Bilirubin Negative Urine Urobilinogen Negative Ur Leukocyte Esterase 1+ H Urine WBC (Auto) 5-10 H Urine RBC (Auto) >30 H U Hyaline Cast (Auto) 5-10 H U Epithel Cells (Auto) 10-20 H Urine Bacteria (Auto) Negative Hepatitis C Ab Screen Neg 06/20/18 07:53 WBC RBC Hgb Hct MCV MCH MCHC RDW Std Deviation RDW Coeff of Myriam Plt Count MPV Immature Gran % (Auto) Neut % (Auto) Lymph % (Auto) [place] % (Auto) Eos % (Auto) Baso % (Auto) Immature Gran # (Auto) Neut # (Auto) Lymph # (Auto) [place] # (Auto) Eos # (Auto) Baso # (Auto) Sodium Potassium Chloride Carbon Dioxide Anion Gap BUN Creatinine Est Cr Clr Drug Dosing Est GFR ( Amer) Est GFR (Non-Af Amer) BUN/Creatinine Ratio Glucose Lactate Calcium Magnesium Total Bilirubin Direct Bilirubin AST ALT Alkaline Phosphatase Total Creatine Kinase Troponin I 0.088 H* Total Protein Albumin Urine Color Urine Appearance Urine pH Ur Specific [place] Urine Protein Urine Glucose (UA) Urine Ketones Urine Blood Urine Nitrite Urine Bilirubin Urine Urobilinogen Ur Leukocyte Esterase Urine WBC (Auto) Urine RBC (Auto) U Hyaline Cast (Auto) U Epithel Cells (Auto) Urine Bacteria (Auto) Hepatitis C Ab Screen Diagnostic Findings Patient had a renal ultrasound which I reviewed there is no hydroureteronep hrosis there are bilateral ureteral jets there is no evidence of clot or filling defect in the bladder (1) Acute renal failure Acute renal failure type: unspecified Qualified Code(s): N17.9 - Acute kidney failure, unspecified
--- NOTE | 2018-06-20 12:23 | Nephrology Consultation ---
Date of Consultation June 20, 2018 Assessment & Plan (1) Acute renal failure: 67 year old gentlemen with history well-controlled hypertension, history of chronic kidney disease and recent diagnosis prostate cancer status post prostate biopsy on 06/16/2018, admitted to the hospital with anuria and hematuria. On admission he was found to have acute kidney injury creatinine was 0.5 which slightly improved to 4.1 this morning with baseline creatinine 1.0- 1.1. Renal ultrasound was negative for postrenal obstruction. Urinalysis positive for proteinuria and hematuria with history of gross hematuria since yesterday off and on. Blood pressure has been well controlled without any hypotensive episode however there was report of volume depletion. Acute kidney injury most likely hemodynamically mediated with volume depletion, renal function started to improve with IV hydration, patient started to urinate. No postrenal obstruction. Although there is proteinuria hematuria which is most likely related to the gross hematuria, unlikely any glomerular process going on. --agree with continuing on IV hydration for now, encourage p.o. intake if p.o. intake improved and blood pressure stays stable IV fluid can be discontinued soon --would not consider any other workup at this time however if renal function does not improve as expected and continues to have proteinuria hematuria, may need serological workup however the hematuria most likely related to recent prostate biopsy. --continue to hold losartan avoid nephrotoxic medications, dose medications for GFR <30 --would be advisable to avoid all NSAIDs however patient mentioned that he has to take Celebrex daily and the fact that his renal function has been pretty normal despite being on Celebrex, discussed about benefit and possible risk. Will follow Thank you for allowing me to participate in your patient's care. It was a pleasure to see Leif (2) Anuria: (3) Hematuria: (4) HTN (hypertension): (5) HLD (hyperlipidemia): (6) History of prostate biopsy: History of Present Illness Reason for Consultation: Acute kidney injury Attending Physician: Jaguar Tejada DO History of Present Illness Anastacio Rand is a 67-year-old gentlemen with recent diagnosis of adenocarcinoma prostate admitted to the hospital with acute kidney injury. Nephrology consult was requested for further management. Electronic medical records including labs and imaging are reviewed in detail during patient's visit. Anastacio has no prior history of chronic kidney disease, baseline creatinine has been 1.0-1.1. Was recently diagnosed with prostate carcinoma, had a prostate biopsy on 06/16/2018. He noticed some hematuria as the following day however after going home hematuria resolved. Over last to 3 days he has been working outside a lot different yard work and he feels like he somewhat got dehydrated. Yesterday evening he noticed gross hematuria and notice that he was not able to urinate whole day and he decided to come to the emergency room for further evaluation. On admission he was found to have acute kidney injury creatinine was 4.5, which slightly improved to 4.1 this morning. Renal ultrasound showed no postrenal obstruction. Bladder scan did not show any urinary retention. Urinalysis showed 2+ proteinuria and 3+ hematuria with more than 30 RBC. CPK was 187. He was started on IV fluid and currently continued on normal saline at 125 mL/hour. His started voiding after he came to the hospital initial void was clear however he has been having off and on hematuria since. He was evaluated by Urology and was explained to him that he can expect off and on hematuria for up to a week after prostate biopsy. Overall he started to feel much better. Denies any have arthralgia, skin rash. Has been taking Celebrex once a day for many years. Has been taking losartan 100 milligram at home which is on hold. Has not been on any diuretics. Has history of hypertension has been pretty well controlled on losartan 100 milligram daily. Has been on simvastatin. No history of diabetes, coronary artery disease. No family history of chronic kidney disease or end-stage renal disease. Allergies Allergy/AdvReac Type Severity Reaction Status Date / Time No Known Allergies Allergy Verified 06/20/18 03:32 Home Medications Home Medications Medication Instructions Recorded Confirmed Type celecoxib [Celebrex] 200 mg PO DAILY 06/20/18 06/20/18 History ciprofloxacin HCl 500 mg PO Q12H 06/20/18 06/20/18 History losartan 100 mg PO DAILY 06/20/18 06/20/18 History simvastatin 20 mg PO DAILY 06/20/18 06/20/18 History tramadol 50 - 100 mg PO Q4 PRN 06/20/18 06/20/18 History Patient History Social History Preferred Language: Czech Communication Ability: Effective Golf Player Assistant Required: No Beliefs That Will Affect Care: None Current Living Situation: Spouse Other Information That Helps Us Care for You: No Feels Safe at Home: Yes Safety Concerns: Feels Safe At This Time Smoking Status: Never smoker Do You Dip or Chew Tobacco: No Second Hand Exposure: No Tobacco Cessation Education Requested by Patient: No Hx Alcohol Use: Yes Alcohol type: beer Hx Substance Use: No Results & Data Vital Signs (Past 12 Hours) Vital Signs Temp Pulse Pulse Pulse Resp BP BP 06/20/18 11:36 36.9 C 86 18 131/74 06/20/18 08:00 95 H 06/20/18 07:04 36.7 C 78 18 126/70 06/20/18 04:48 36.6 C 85 20 146/94 H 06/20/18 03:07 80 16 134/78 06/20/18 01:23 37 C 92 H 20 128/79 Pulse Ox 06/20/18 11:36 98 06/20/18 08:00 06/20/18 07:04 96 06/20/18 04:48 97 06/20/18 03:07 98 06/20/18 01:23 97 (1) Acute renal failure Acute renal failure type: unspecified Qualified Code(s): N17.9 - Acute kidney failure, unspecified
--- NOTE | 2018-06-20 17:09 | Family Medicine Progress Note ---
Date of Service June 20, 2018 Assessment & Plan (1) Acute renal failure: 67-year-old male with past medical history of hypertension, hyperlipidemia, recent prostate biopsy presents with acute renal failure Acute renal failure Nephrology consulted, appreciate recommendations Renal function showing improvement It appears that the patient has kidney injury secondary to volume depletion Renal ultrasound did not show any signs of infection Received 3 L boluses in the ED, continue maintenance fluids Hold losartan, hold Celebrex No indication for further testing at this time unless renal function does not improve Elevated troponin Troponin downtrending, likely demand ischemia in the setting of dehydration and acute renal failure Cardiology consulted, appreciate recommendationconsidering risk factors, would recommend outpatient ischemic work-up including stress test History of elevated PSA Recent prostate biopsy, incidental hematuria noncontributory On Cipro at home, continue in the hospital Hypertension Holding losartan Hyperlipidemia Continue simvastatin DVT prophylaxis SCDs, ambulate Code Full (2) HTN (hypertension): (3) HLD (hyperlipidemia): (4) Elevated PSA: (5) History of prostate biopsy: (6) Hematuria: Supervising Physician Co-Signing Physician Notes I personally examined the patient and verified all almazan points of history and exam, discussed case, and agree with decision making with Dr Herring. Feeling okay. Made 350 mL urine. Vitals noted, in general awake and alert pleasant no distress. HEENT normocephalic atraumatic makes membranes moist. Breathing unlabored no accessory muscle use good effort. Labs noted Acute renal failureappears to be severe prerenal possibly with element of ATN due to dehydration compounded by NSAIDs and ARB. Improving continue IV fluids and supportive care. Subjective 67-year-old male with past medical history of hypertension, hyperlipidemia and recent prostate biopsy presents with hematuria and acute renal failure. Today the patient is doing well, he reports that his urine is pinkish color. He is tolerating a diet this morning. Review of systems Constitutional; no fevers, chills, night sweats CV, no chest pain, no palpitations Pulmonary; no shortness of breath, no wheezing GI; no abdominal pain, no nausea/vomiting/diarrhea Review of Systems Review of Systems: All systems reviewed & are unremarkable except as noted in HPI & below Physical Exam Constitutional: WD/WN, vitals as above Eyes: PERRL, conjunctivae normal, anicteric sclerae ENMT: external ear and nose normal, oropharynx normal Neck: trachea midline, no thyromegaly Respiratory: normal respiratory effort, lungs clear to auscultation Cardiovascular: RRR, no murmur, no edema Gastrointestinal (Abdomen): normal bowel sounds, soft, nontender, no hepatosplenomegaly Musculoskeletal: no cyanosis or clubbing, extremities motor strength 5/5 Skin: no rashes, warm and dry Neurologic: PERRL, EOMI, accommodation nl, no face palsy, no dysarthria Psychiatric: A+Ox3, euthymic affect Results & Data Vital Signs (Past 12 Hours) Vital Signs Temp Pulse Pulse Resp BP BP Pulse Ox 06/20/18 15:43 36.8 C 75 18 125/74 97 06/20/18 14:50 80 06/20/18 11:36 36.9 C 86 18 131/74 98 06/20/18 08:00 95 H 06/20/18 07:04 36.7 C 78 18 126/70 96 Resident Activity Tracking Resident Involvement: Resident Care Provided Care Provided: Adult Hospital Medicine (1) Acute renal failure Acute renal failure type: unspecified Qualified Code(s): N17.9 - Acute kidney failure, unspecified
[2018-06-20] MEDS ORDERED: PNEUMOCOCCAL ADMINISTRATION CHARGE ONE (20:00)
[2018-06-20] MEDS ORDERED: PNEUMOCOCCAL POLYSACCHARIDES 25 MCG/0.5 ML VIAL/SYR IM ONE (20:00)
[2018-06-21] MEDS ORDERED: CIPROFLOXACIN 400 MG/200 ML BAG IV SCH (04:00)
[2018-06-21] MEDS: SODIUM CHLORIDE 0.9% 1000ML 1,000 ML IV SCH ×4 (04:14→23:33)
[2018-06-21 07:15] LABS: BUN Creatinine Ratio 9.5 (10-20); Calcium 7.8 mg/dl (8.5-10.1); Creatinine Clr Calc Pharmacy 23.1 ml/min; Est GFR (African American) 19.8; Est GFR (Non-African American) 17.1; Potassium 4.4 mmol/L (3.5-5.1)
[2018-06-21 07:16] LABS: Phosphorus 4.8 mg/dl (2.5-4.9)
[2018-06-21] MEDS: SIMVASTATIN 20 MG TAB PO SCH (08:18)
--- NOTE | 2018-06-21 09:37 | Cardiology Progress Note ---
Date of Service June 21, 2018 Assessment & Plan (1) Elevated troponin: He had a slightly elevated troponin in a descending pattern so I do not think we have to be concerned about an acute cardiac event. It is possible that the elevated troponin is simply due to excessive activity and renal in sufficiency, however I am a little bit bothered by his symptoms of fatigue which are unusual for him. I would not do anything with the troponin now, I would certainly not consider invasive evaluation with his elevated creatinine but I do think we should perform a stress test at some point. (2) Fatigue: He describes exertional fatigue which is much more prominent this year than last year when he did the same thing. He thinks it might be deconditioning and being hot and humid, however he did not have this difficulty last year and he does have a lot of risk factors for coronary artery disease. Is certainly possible that he has had progressive coronary disease and that the symptoms represent an anginal equivalent, and the slight troponin elevation was due to demand ischemia. That would not change my approach this hospitalization (evaluation and treatment of his acute renal failure) however if he needs surgery or in the near future as an outpatient I would recommend stress testing to exclude significant ischemia. I would recommend ongoing risk factor management. Subjective He is feeling well today, he has no cardiovascular symptoms. No complaints. Physical Exam Physical Exam: Constitutional: Alert, cooperative and in no distress. Pulmonary: Clear to auscultation bilaterally. Cardiac: Regular rhythm with no murmur, gallop or rub. Abdomen: Soft, nontender with normal bowel sounds. Extremities: No edema. Skin: No rash, ecchymoses or petechiae. Results & Data Vital Signs (Past 12 Hours) Vital Signs Temp Pulse Pulse Resp BP Pulse Ox 06/21/18 07:15 67 06/21/18 07:02 37.1 C 68 18 124/78 97 06/21/18 04:13 36.8 C 75 16 138/81 96 06/20/18 23:22 37.1 C 88 19 147/86 H 98 Diagnostic Findings Telemetry: Sinus rhythm, no significant abnormality
--- NOTE | 2018-06-21 10:35 | Urology Progress Note ---
Date of Service June 21, 2018 Subjective Patient is afebrile vital signs are stable He offers no complaints Urine output was 4 L yesterday Creatinine down to 3.5 Physical exam Abdomen soft nontender Assessment acute renal failure probably secondary to dehydration patient slowly improving He should follow-up with Dr. Hobson for the results of his prostate biopsy No urologic intervention needed will sign off on patient now reconsult if needed Results & Data Vital Signs (Past 12 Hours) Vital Signs Temp Pulse Pulse Resp BP Pulse Ox 06/21/18 07:15 67 06/21/18 07:02 37.1 C 68 18 124/78 97 06/21/18 04:13 36.8 C 75 16 138/81 96 06/20/18 23:22 37.1 C 88 19 147/86 H 98
--- NOTE | 2018-06-21 12:53 | Nephrology Progress Note ---
Date of Service June 21, 2018 Assessment & Plan (1) Acute renal failure: 67 year old gentlemen with history well-controlled hypertension, history of chronic kidney disease and recent diagnosis prostate cancer status post prostate biopsy on 06/16/2018, admitted to the hospital with anuria and h ematuria. On admission he was found to have acute kidney injury creatinine was 0.5 which slightly improved to 4.1 this morning with baseline creatinine 1.0- 1.1. Renal ultrasound was negative for postrenal obstruction. Urinalysis positive for proteinuria and hematuria with history of gross hematuria since yesterday off and on. Blood pressure has been well controlled without any hypotensive episode however there was report of volume depletion. Acute kidney injury most likely hemodynamically mediated with volume depletion, renal function started to improve with IV hydration, patient started to urinate. No postrenal obstruction. Although there is proteinuria hematuria which is most likely related to the gross hematuria, unlikely any glomerular process going on. --renal function continues to improve nicely, no other workup indicated at this time. Would suggest discontinuing IV fluid if p.o. intake remains adequate. Consider starting on oral sodium bicarbonate 650 milligram twice a day if bicarb continues to stay low. --continue to hold losartan avoid nephrotoxic medications, dose medications for GFR <30 --would be advisable to avoid all NSAIDs however patient mentioned that he has to take Celebrex daily and the fact that his renal function has been pretty normal despite being on Celebrex, discussed about benefit and possible risk. Will sign off, please contact us if any further assistance needed. Thank you. (2) Anuria: (3) Hematuria: (4) HTN (hypertension): (5) HLD (hyperlipidemia): (6) History of prostate biopsy: Subjective Leif was seen and examined in his room this morning overall he is feeling much better. Renal function continues to improve. Denies any other symptoms. Blood pressure well controlled. Has been non-oliguric. Physical Exam Physical Exam: GENERAL: Middle-aged male , AAA x 3, not in any distress. NECK: Supple, no JVD. RESPIRATORY: clear to auscultation bilaterally, no wheezes or rales. CARDIOVASCULAR: S1, S2 normal, rate rhythm regular. EXTREMITY: No lower extremity edema NEURO: speech fluent. PSYCHIATRY: Normal mood and judgment Results & Data Vital Signs (Past 12 Hours) Vital Signs Temp Pulse Pulse Resp BP Pulse Ox 06/21/18 11:47 36.7 C 77 16 156/92 H 95 06/21/18 07:15 67 06/21/18 07:02 37.1 C 68 18 124/78 97 06/21/18 04:13 36.8 C 75 16 138/81 96 (1) Acute renal failure Acute renal failure type: unspecified Qualified Code(s): N17.9 - Acute kidney failure, unspecified
--- NOTE | 2018-06-21 12:58 | Family Medicine Progress Note ---
Date of Service June 21, 2018 Assessment & Plan (1) Acute renal failure: 67-year-old male with past medical history of hypertension, hyperlipidemia, recent prostate biopsy 2018, and prostate cancer, who presents with anuria, hematuria found to be in acute renal failure. Acute renal failure -baseline is normal Dosimetrist --> >4 on admission Nephrology consulted, appreciate recommendations, have now signed off. It appears that the patient has kidney injury secondary to volume depletion, was working in his garden the past few days, low water intake, some alcohol (4 beers) on day of admission -- of note, CAGE is 0. Renal ultrasound did not show any signs of infection Improving with fluid IV hydration, continue maintenance Cont to hold losartan, hold Celebrex -cont to follow BMP. Elevated troponin Troponin downtrending, likely demand ischemia in the setting of dehydration and acute renal failure. No anginal symptoms or EKG changes. Cardiology consulted, appreciate recommendationconsidering risk factors, plan for outpatient ischemic work-up including stress test History of elevated PSA Recent prostate biopsy, incidental hematuria noncontributory On Cipro at home, continue in the hospital - 6 day total course originally intended which would be Friday/friday. Hypertension Holding losartan Hyperlipidemia Continue simvastatin DVT prophylaxis SCDs, ambulate Code Full FEN/GI: NSS at 150ml/hr for 12 more hours -- PO intake improving. (2) HTN (hypertension): (3) HLD (hyperlipidemia): (4) Elevated PSA: (5) History of prostate biopsy: (6) Hematuria: Supervising Physician Co-Signing Physician Notes I personally examined the patient and verified all almazan points of history and exam, discussed case, and agree with decision making with Dr Herring. No complaints, seems to be making adequate urine. Case discussed with nephrology. Vitals noted, in general awake and alert pleasant no distress. HEENT normocephalic atraumatic makes membranes moist. Breathing unlabored no accessory muscle use good effort. Labs noted Acute renal failureappears to be severe prerenal possibly with element of ATN due to dehydration compounded by NSAIDs and ARB. Does appear to be improving, continue IV fluids, continue supportive care. Hopefully home in another couple of days with ongoing improvement in his renal function. Subjective seen and examined at the bedside this AM. Says he is feeling well, tolerating PO. Is urinating, does not endorse dysuria. Review of Systems Review of Systems: All systems reviewed & are unremarkable except as noted in HPI & below Physical Exam Physical Exam: Vitals noted. GENERAL: Awake, alert to person, place, and time, nontoxic-appearing, in no distress HENT: Normocephalic, atraumatic. Mucus membranes appear moist. EYES: Normal conjunctiva. Sclera non-icteric. EOMI. NECK: Supple. Full range of motion. No JVD RESPIRATORY: Clear to auscultation. Normal work of breathing. CARDIAC: Regular rate, normal rhythm. Extremities warm and well perfused, 2+ radial pulses bilaterally; 2+ posterior tibialis pulses bilaterally. ABDOMEN: Soft, non-distended. No tenderness to palpation in all four quadrants. No rebound or guarding. No masses. Bowel sounds are normal. LOWER EXTREMITIES: Inspection of calves reveal equal size bilaterally. They are non-tender. No edema. No discoloration. NEURO: No focal gross focal motor deficits noted. Sensation in tact. CN II-XII grossly in tact. SKIN: Rash not present. No jaundice noted. Significant lesions not present. PSYCH: Appropriate mood and affect. Cooperative. Urinal at bedside, clear yellow urine. Exam as done by Shante Herring MD, [employer]. Results & Data Vital Signs (Past 12 Hours) Vital Signs Temp Pulse Pulse Resp BP Pulse Ox 06/21/18 11:47 36.7 C 77 16 156/92 H 95 06/21/18 07:15 67 06/21/18 07:02 37.1 C 68 18 124/78 97 06/21/18 04:13 36.8 C 75 16 138/81 96 Laboratory Results 06/21/18 Range/Units 05:36 Sodium 143 (136-145) mmol/L Potassium 4.4 (3.5-5.1) mmol/L Chloride 119 H (98-107) mmol/L Carbon Dioxide 16 L (21-32) mmol/L Anion Gap 8.0 (3-11) BUN 33 H (7-18) mg/dl Creatinine 3.51 H D (0.6-1.4) mg/dl Est Cr Clr Drug Dosing 23.1 ml/min Est GFR ( Amer) 19.8 Est GFR (Non-Af Amer) 17.1 BUN/Creatinine Ratio 9.5 L (10-20) Glucose 105 H (70-99) mg/dl Calcium 7.8 L (8.5-10.1) mg/dl Phosphorus 4.8 (2.5-4.9) mg/dl Albumin 3.0 L (3.4-5.0) gm/dl Medications Administered Current Inpatient Medications Acetaminophen (Tylenol) 650 mg PO Q4H PRN PRN Reason: pain/fever Stop: 07/20/18 04:57 Ciprofloxacin (Cipro) 500 mg PO DAILY [facility]; Protocol Stop: 06/29/18 09:01 Sodium Chloride (Nss 1000ml) 1,000 mls @ 150 mls/hr IV .Q6H40M [facility] Stop: 07/20/18 04:57 Last Admin: 06/21/18 17:27 Dose: 150 mls/hr Documented by: Ondansetron HCl (Zofran) 4 mg IV Q6H PRN PRN Reason: Nausea Stop: 07/20/18 04:57 Simvastatin (Zocor) 20 mg PO DAILY [facility] Stop: 07/20/18 08:59 Last Admin: 06/21/18 08:18 Dose: 20 mg Documented by: Sodium Bicarbonate (Sodium Bicarbonate) 650 mg PO BID [facility] Stop: 07/21/18 20:59 Tramadol HCl (Ultram) 50 mg PO Q4 PRN PRN Reason: Pain Stop: 07/20/18 04:57 Resident Activity Tracking Resident Involvement: Resident Care Provided Care Provided: Adult Hospital Medicine (1) Acute renal failure Acute renal failure type: unspecified Qualified Code(s): N17.9 - Acute kidney failure, unspecified
[2018-06-21] MEDS: SODIUM BICARBONATE 650 MG TAB PO SCH (20:52)
[2018-06-22] MEDS: SODIUM CHLORIDE 0.9% 1000ML 1,000 ML IV SCH ×2 (02:04→08:30)
[2018-06-22 05:59] LABS: Albumin Level 2.9 gm/dl (3.4-5.0); Calcium 7.6 mg/dl (8.5-10.1); Est GFR (African American) 22.9; Est GFR (Non-African American) 19.7; Potassium 4.2 mmol/L (3.5-5.1)
[2018-06-22 06:14] LABS: Phosphorus 3.8 mg/dl (2.5-4.9)
[2018-06-22] MEDS: SIMVASTATIN 20 MG TAB PO SCH (08:29)
[2018-06-22] MEDS: SODIUM BICARBONATE 650 MG TAB PO SCH ×2 (08:29→20:37)
[2018-06-22] MEDS ORDERED: CIPROFLOXACIN 500 MG TAB PO SCH (09:00)
--- NOTE | 2018-06-22 14:02 | Family Medicine Progress Note ---
Date of Service June 22, 2018 Assessment & Plan (1) Acute renal failure: 67-year-old male with past medical history of hypertension, hyperlipidemia, recent prostate biopsy 2018, and prostate cancer, who presents with anuria, hematuria found to be in acute renal failure. 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 Renal ultrasound did not show any signs of obstruction Improving with fluid IV hydration, discontinue maintenance ff. Cont to hold losartan, hold Celebrex -cont to follow BMP. Improving -- will likely need outpatient follow up. #Elevated troponin Likely demand ischemia in the setting of dehydration and acute renal failure. No anginal symptoms or EKG changes. Cardiology consulted, appreciate recommendationconsidering risk factors, plan for outpatient ischemic work-up including stress test on a non-urgent basis. #History of elevated PSA, s/p prostate biopsy Recent prostate biopsy, incidental hematuria noncontributory On Cipro at home, continue in the hospital - 6 day total course completed. #Hypertension Holding losartan as above - BP is acceptable, but will likely need to resume on discharge. #Hyperlipidemia Continue simvastatin #DVT prophylaxis SCDs, ambulate Code Full #FEN/GI: Fluids discontinued, continue PO hydration. Dispo: likely to home tomorrow with follow up BMP, and cardiology as above. (2) HTN (hypertension): (3) HLD (hyperlipidemia): (4) Elevated PSA: (5) History of prostate biopsy: (6) Hematuria: Supervising Physician Co-Signing Physician Notes Resident Physician Supervision Note: I independently interviewed and examined the patient and verified the almazan history and physical, reviewed labs and image studies, discussed the case with the resident Dr. Herring and agree with the findings and care plan. Subjective Seen and examined at the bedside this AM. Feeling some distress about the results of his prostate biopsy. Tolerating PO. Urinating appropriately. Review of Systems Review of Systems: All systems reviewed & are unremarkable except as noted in HPI & below Physical Exam Physical Exam: Vitals noted. GENERAL: Awake, alert to person, place, and time, nontoxic-appearing, in no distress HENT: Normocephalic, atraumatic. Mucus membranes appear moist. EYES: Normal conjunctiva. Sclera non-icteric. EOMI. NECK: Supple. Full range of motion. RESPIRATORY: Clear to auscultation. Normal work of breathing. CARDIAC: Regular rate, normal rhythm. Extremities warm and well perfused. LOWER EXTREMITIES: Inspection of calves reveal equal size bilaterally. NEURO: No focal gross focal motor deficits noted. Sensation in tact. CN II-XII grossly in tact. SKIN: Rash not present. No jaundice noted. Significant lesions not present. PSYCH: Appropriate mood and affect. Cooperative. Urinal at bedside, appears to be clear yellow urine. Exam as done by Shante Herring MD, [employer]. Results & Data Vital Signs (Past 12 Hours) Vital Signs Temp Pulse Resp BP BP Pulse Ox 06/22/18 11:39 36.9 C 74 20 156/90 H 97 06/22/18 07:22 37.0 C 75 20 139/98 98 06/22/18 03:48 36.8 C 74 20 151/91 H 97 Laboratory Results 06/22/18 Range/Units 05:19 Sodium 146 H (136-145) mmol/L Potassium 4.2 (3.5-5.1) mmol/L Chloride 121 H (98-107) mmol/L Carbon Dioxide 18 L (21-32) mmol/L Anion Gap 7.0 (3-11) BUN 25 H (7-18) mg/dl Creatinine 3.12 H D (0.6-1.4) mg/dl Est Cr Clr Drug Dosing 26.0 ml/min Est GFR ( Amer) 22.9 Est GFR (Non-Af Amer) 19.7 BUN/Creatinine Ratio 8.0 L (10-20) Glucose 96 (70-99) mg/dl Calcium 7.6 L (8.5-10.1) mg/dl Phosphorus 3.8 D (2.5-4.9) mg/dl Albumin 2.9 L (3.4-5.0) gm/dl Medications Administered Current Inpatient Medications Acetaminophen (Tylenol) 650 mg PO Q4H PRN PRN Reason: pain/fever Stop: 07/20/18 04:57 Ciprofloxacin (Cipro) 500 mg PO DAILY [facility]; Protocol Stop: 06/23/18 09:01 Last Admin: 06/22/18 08:29 Dose: 500 mg Documented by: Ondansetron HCl (Zofran) 4 mg IV Q6H PRN PRN Reason: Nausea Stop: 07/20/18 04:57 Simvastatin (Zocor) 20 mg PO DAILY [facility] Stop: 07/20/18 08:59 Last Admin: 06/22/18 08:29 Dose: 20 mg Documented by: Sodium Bicarbonate (Sodium Bicarbonate) 650 mg PO BID [facility] Stop: 07/21/18 20:59 Last Admin: 06/22/18 08:29 Dose: 650 mg Documented by: Tramadol HCl (Ultram) 50 mg PO Q4 PRN PRN Reason: Pain Stop: 07/20/18 04:57 Resident Activity Tracking Resident Involvement: Resident Care Provided Care Provided: Adult Hospital Medicine (1) Acute renal failure Acute renal failure type: unspecified Qualified Code(s): N17.9 - Acute kidney failure, unspecified
[2018-06-23] MEDS ORDERED: MAGNESIUM HYDROXIDE SUSP 30 ML UDC PO PRN (00:08)
[2018-06-23 06:12] LABS: BUN Creatinine Ratio 8.5 (10-20); Calcium 7.9 mg/dl (8.5-10.1); Creatinine Clr Calc Pharmacy 31.2 ml/min; Est GFR (African American) 27.9
[2018-06-23 08:12] VITALS: BP 135/81; PULSE 67; TEMP 98.6; O2SAT 96
--- NOTE | 2018-06-23 08:15 | Discharge Summary ---
Date of Service June 23, 2018 Admission HPI Per Admitting Provider 67-year-old male with history of elevated PSA with prostate biopsy on June 16, hypertension, hyperlipidemia presents with concern for trouble urinating today. Patient reports prostate biopsy on June 16 for concern of elevated PSA. Afterwards he was urinating and had no trouble until today. Reports sweating profusely today and yesterday while doing extensive yard work. Patient worked at his yard for 5 hours today. Reports some dizziness while doing yard work today. reports trying to stay well-hydrated he had 4 bottles of 16 ounce water and 1 bottle of 16 ounce Gatorade. Pt was also on Celebrex and losartan. he denies any sense of urgency or hesitancy. He had an episode of urinary bleeding in the emergency room but no urine output. Denies any abdominal discomfort, nausea vomiting, fever chills, headache, dizziness, chest pain, shortness of breath. Denies any previous cardiac history or strokes. Of note reports occasional right-sided flank pressure in the past 1 year but none at the moment Social history: Patient drinks 3-4 beers per day, smoked for 2 to 3 years 1 pack/day but quit 40 years ago, no occasional drug use, patient is a retired pharmacist Surgical history: Tonsillectomy Principal Diagnosis acute renal failure Discharge Exam Vitals noted. GENERAL: Awake, alert to person, place, and time, nontoxic-appearing, in no distress HENT: Normocephalic, atraumatic. Mucus membranes appear moist. EYES: Normal conjunctiva. Sclera non-icteric. EOMI. NECK: Supple. Full range of motion. RESPIRATORY: Clear to auscultation. Normal work of breathing. CARDIAC: Regular rate, normal rhythm. Extremities warm and well perfused. LOWER EXTREMITIES: Inspection of calves reveal equal size bilaterally. NEURO: No focal gross focal motor deficits noted. Sensation in tact. CN II-XII grossly in tact. SKIN: Rash not present. No jaundice noted. Significant lesions not present. PSYCH: Appropriate mood and affect. Cooperative. Urinal at bedside, appears clear/yellow. Exam as done by Shante Herring MD, [employer]. Discharge Data Allergies Allergy/AdvReac Type Severity Reaction Status Date / Time No Known Allergies Allergy Verified 06/20/18 03:32 Consultations 06/20/18 03:00 ED Decision to Admit Stat 06/20/18 04:58 Consult Cardiology Routine Consult Nephrology Routine Consult Urology Routine Ordered Studies 06/20/18 04:58 US renal/blad retro comp Urgent Hospital Course (1) Acute renal failure: 67-year-old male with past medical history of hypertension, hyperlipidemia, recent prostate biopsy 2018, and prostate cancer, who presents with anuria, hematuria found to be in acute renal failure. Given aggressive IV hydration here, serial BMPs, nephrotoxic medications held, and kidney function improved. Creatinine 2.65 on day of discharge. 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 Renal ultrasound did not show any signs of obstruction. Hematuria prior to admission likely secondary to prostate biopsy -- seen by urology, no interventions indicated. Improved with fluid IV hydration. Cont to hold losartan, hold Celebrex, plan for amlodipine and tylenol instead until kidney function fully restored, to be followed by PCP office. Script for repeat BMP later this week. -Given extensive education on adequate hydration. #Elevated troponin Likely demand ischemia in the setting of dehydration and acute renal failure. No anginal symptoms or EKG changes. Cardiology consultedconsidering risk factors, plan for outpatient ischemic work-up including stress test on a non-urgent basis. #History of elevated PSA, s/p recent prostate biopsy Recent prostate biopsy, incidental hematuria noncontributory On Cipro at home, continue in the hospital - 6 day total course completed. -To be followed up by Dr. Hobson's office. #Hypertension Holding losartan as above - plan for amlodipine daily until kidney function fully restored, as above. #Hyperlipidemia Continue simvastatin A Nima MENDEZ (2) HTN (hypertension): (3) HLD (hyperlipidemia): (4) Elevated PSA: (5) History of prostate biopsy: (6) Hematuria: Total Time Total Time Spent Total Time Spent (In Minutes): 30 Discharge Plan Discharge Items Patient Disposition: Home - Self-Care Reason For Visit: ANURIC Discharge Diagnosis: anuria, acute renal failure Condition: Fair Discharge Goals: Decrease discomfort, Diagnostic testing, Improve disease control, Improve nutritional status and Learn about illness Activity: Resume your previous activity Lifting: Gradually increase as tolerated Bathing: No limitations Sexual Activity: When tolerated Driving/Machine Use: No limitations Non-emergency contact: Primary Care Provider Call non-emergency contact if: you have any medication questions and your symptoms worsen Follow-up/Referrals: Roger Treadwell MD [Primary Care Provider] - 06/30/18 2:30 pm (Please, follow up with Dr. Treadwell on FridayJune 30 at 2:30 pm. *If you need to change this appointment, call the office at [phone].) Diet: Heart Healthy Other Ambulatory Orders: Basic Metabolic Panel (Routine) Timeframe: [id number] Location: Determined by Patient Ordered By: Shante Hinds Provider Instructions: You were admitted due to decrease in urine output and were found to have acute kidney failure -- this was treated with aggressive IV fluid hydration, and by stopping potentially nephrotoxic agents -- we monitored your urine output, which has normalized, and your Creatinine. On day of discharge it is back down to 2.65 (down from>4 on admission). Ideally, normal is 1 or below. Your care was guided by nephrology as well -- there is no current plan for outpatient follow up with their office seeing as the cause of your kidney dis function was due to volume depletion and dehydration combined with alcohol and your celebrex/losartan. A perfect storm, if you will. A script has been given to you to recheck creatinine this . Please get this blood work done. Your PCP will follow up results. Please continue to HOLD your celebrex until after your appointment with your PCP. In the meantime, to control your pain, we recommend tylenol, heat/ice, rest. Do not exceed daily maximum dosing of tylenol (3250mg). Do NOT use any other NSAIDs (ibuprofen, advil, motrin, naproxen, aleve, etc). Regarding your blood pressure medication: please HOLD your losartan until after your appointment with your PCP. In the meantime, to control your blood pressure, we will start you on amlodipine, to be taken once daily. Please make sure to hydrate appropriately -- for your weight, you should be aiming for 80-90 ounces of water per day (tea, coffee, etc do NOT count). Aim for your urine to be yellow/clear colored. If it's darker, you need to drink more water. If your symptoms recur, you cannot make urine, your urine is dark or bloody, you develop pain in your mid back area, it campa when you pee or you have persistent or severe abdominal pain, please return to the emergency room. If you have questions or concerns, do not hesitate to reach out to your PCP office. Be Well A Nima MENDEZ Prescriptions: New amlodipine 5 mg tablet 5 mg PO DAILY Qty: 30 RF: 0 Continued tramadol 50 mg Tablet 50 - 100 mg PO Q4 PRN (Reason: Pain) RF: 0 simvastatin 20 mg Tablet 20 mg PO DAILY RF: 0 Discontinued celecoxib [Celebrex] 200 mg Capsule 200 mg PO DAILY RF: 0 ciprofloxacin HCl 500 mg Tablet 500 mg PO Q12H RF: 0 losartan 100 mg Tablet 100 mg PO DAILY RF: 0 Stand-Alone Forms: [facility] Discharge Orders: Discharge Order (Routine); Ordered 06/23/18 Ordered By: Shante Herring Admission Data Admit Date/Time: 06/20/18 04:08 Attending Provider: Sharon Vora Admit Provider: Basilio Enriquez Primary Care Provider: Roger Treadwell Other Providers: Basilio Enriquez ; Prateek Landa ; Maye Riggs ; Harris Stark ; Jaguar Tejada Service: Medical Other Interventions: Discharge Summary Assessment (RN) Last Done: 06/23/18 09:55 Pending Studies at Discharge: No DC Date/Time DO NOT enter until pt leaves facility: 06/23/18 10:55 Supervising Physician Co-Signing Physician Notes Resident Physician Supervision Note: I independently interviewed and examined the patient and verified the almazan history and physical, reviewed labs and image studies, discussed the case with the resident Dr. Herring and agree with the findings and care plan. Time spent in discharge 35 min Resident Activity Tracking Resident Involvement: Resident Care Provided Care Provided: Adult Hospital Medicine
[2018-06-23] MEDS: SIMVASTATIN 20 MG TAB PO SCH ×2 (08:35→08:37)
[2018-06-23] MEDS: SODIUM BICARBONATE 650 MG TAB PO SCH (08:37)
== END 2018-06-23 10:55 | disposition home or self-care (01) | DRG 683 ==
LOC: ED 01:12 → 2E 04:08 → SUATTDRO 04:08 → 2E 04:31 → 4E 06-21 12:55

== ENCOUNTER 2018-08-04 05:25 | Inpatient (IN) ==
--- NOTE | 2018-07-27 10:51 | Anesthesiology Consultation ---
Date of Service July 27, 2018 Assessment & Plan (1) Encounter for pre-operative examination: Chart Review Chart Review: Acceptable Risk for Surgery and Patient seen in Pre Admission Testing Teaching & Discussion Instructed NPO after midnight before surgery, except medications with 15 cc of water. Medication instructions provided according to the PAT guidelines. History Surgery Operation Date: 08/04/18 07:30 Proposed Procedures p Robotic Laparoscopic Assisted Radical Retropubic Prostatectomy, Posisble Open, Possible Pelvic Lymph Node Dissection, Possible Suprapubic Tube Placement - Atul Jones MD Height/Weight Height: 5 ft 8 in Weight: 95.3 kg Allergies Allergy/AdvReac Type Severity Reaction Status Date / Time No Known Allergies Allergy Verified 07/21/18 09:49 Medications Home Medications Medication Instructions Recorded Confirmed Last Taken alprazolam 1 mg tablet 1 mg PO ONCE PRN #10 tab 07/27/18 07/27/18 Unknown amlodipine 10 mg tablet 10 mg PO DAILY #90 tab 07/27/18 07/27/18 Unknown simvastatin 20 mg tablet 20 mg PO QAM #90 tab 07/27/18 07/27/18 Unknown tramadol 50 mg tablet 50 mg PO Q6H PRN #40 tab 07/27/18 07/27/18 Unknown Past Medical History Medical History Elevated PSA (Acute) History of recent hospitalization Admitted to [facility] for dehydration/RODO 06/2018. Elevated troponins felt likely 2/2 kidney injury, but combined with patient's description of worsening f atigue, prompted outpatient stress testing. Hyperlipidemia Hypertension Neck arthritis ? ARTHRITIS, SOMETIMES NECK STIFF AND CRACKS - FULL ROM Prostate cancer REASON FOR UPCOMING SURGERY Snores Exercise / Class Metabolic Activity II 4-5 Yardwork/Stairs/Walk up hill (active with no CP limitations) Past Family History Family History Grandfather Family history of bladder cancer PATERNAL Grandfather (Maternal) Family history of lung cancer Mother , age 71 COPD (chronic obstructive pulmonary disease) Stroke Father , age 70 COPD (chronic obstructive pulmonary disease) Brother Rheumatoid arthritis Past Surgical History Surgical History History of colonoscopy History of tonsillectomy surgery age 6 Past Anesthesia History No Hx of Anesthesia Complications and No Family Hx of Anesthesia Complications History of PONV No Hx of PONV and No Hx of Motion Sickness Social History Smoking Status: Former smoker tobacco type: cigarettes Smoking cigarettes per day: 20 Do You Dip or Chew Tobacco: No Smoking End Date: 40 YRS AGO Hx Alcohol Use: Yes Alcohol type: beer alcohol intake frequency: 3 or more drinks per day Alcohol Intake Frequency Comment: 3-4 PER DAY Hx Substance Use: No substance use type: does not use Review of Systems Pt denies any recent chest pain, shortness of breath, palpitations, cough, fever or URI. Hospitalized 06/20 for dehydration/RODO. Resolved. Physical Exam Vital Signs BP: 135/80 P: 82bpm SPO2: 97% RA T: 98.4 F R: 16 ENMT Mouth: + dental restorations (few silver crowns); no chipped teeth and no loose teeth Thyromental Distance: > or= 3.5 Finger Breadths (3.5) Mallampati Class: II Neck normal visual inspection; neck extension not limited Respiratory normal respiratory effort Auscultation: lungs clear to auscultation bilaterally Cardiovascular Rate/Rhythm: regular rate and regular rhythm Heart Sounds: no murmur Vessels: no carotid bruit Extremities: no edema Testing Laboratory Results 07/27/18 11:06 07/27/18 11:06 07/27/18 07/27/18 11:06 11:06 Urine Color Yellow Urine Appearance Clear Urine pH 5.0 Ur Specific Pinson 1.017 Urine Protein Negative Urine Glucose (UA) Negative Urine Ketones Negative Urine Nitrite Negative Ur Leukocyte Esterase Negative Blood Type O Positive Antibody Screen NEGATIVE Electrocardiogram Date: 06/20/18 Findings: + NSR @ (80) Chest X-Ray Date: 06/20/18 FINDINGS: Incidental note is made of multiple old right rib fractures. There is no pneumothorax or pleural effusion. There is no consolidation or evidence for pulmonary edema. Cardiomediastinal silhouette is normal. IMPRESSION: No acute cardiopulmonary findings. Stress Test Date: 07/24/18 Type: exercise Negative exercise stress echocardiogram and EKG for ischemia at greater than 100% MPHR. The patient complained of no exercise-induced chest pain. Baseline echocardiogram notes normal left ventricular function.
--- NOTE | 2018-07-27 10:56 | PAT Medication Instructions ---
Medication Instructions Date of Service July 27, 2018 Home Medications simvastatin 20 mg PO QAM tramadol 50 - 100 mg PO UD PRN celecoxib [Celebrex] 200 mg PO QAM losartan 100 mg PO QAM alprazolam 1 mg tablet 1 mg PO UD PRN ASK your surgeon for instructions celecoxib [Celebrex] 200 mg PO QAM DO NOT take the morning of surgery losartan 100 mg PO QAM Take morning of surgery With a small sip of water, OTHERWISE NOTHING TO EAT OR DRINK AFTER MIDNIGHT: simvastatin 20 mg PO QAM tramadol 50 - 100 mg PO UD PRN (if needed, may be taken up to four hours before surgery) alprazolam 1 mg tablet 1 mg PO UD PRN (if needed) Take evening before surgery tramadol 50 - 100 mg PO UD PRN (if needed) alprazolam 1 mg tablet 1 mg PO UD PRN (if needed) Other Notes If you have any questions please call us at [phone] or [phone] or [phone] or [phone]
[2018-07-27 12:04] LABS: Basophils # (auto) 0.02 K/uL (0-0.2); Basophils % (auto) 0.5 %; Eosinophils # (auto) 0.09 K/uL (0-0.5); Eosinophils % (auto) 2.1 %; Hematocrit (blood only) 36.8 % (42-52); Hemoglobin 12.5 g/dL (14.0-18.0); Lymphocytes # (auto) 1.25 K/uL (1.2-3.4); Lymphocytes % (auto) 29.2 %; Mean Corpuscular Volume 98.1 fL (80-100); Mean Platelet Volume 8.3 fL (7.4-10.4); Monocytes # (auto) 0.47 K/uL (0.11-0.59); Neutrophils # (auto) 2.45 K/uL (1.4-6.5); Neutrophils % (auto) 57.2 %; Platelet Count 217 K/uL (130-400); RDW Coefficient of Variation 12.6 % (11.5-14.5); RDW Standard Deviation 44.5 fL (36.4-46.3); Red Blood Count 3.75 M/uL (4.7-6.1); White Blood Count 4.28 K/uL (4.8-10.8)
[2018-07-27 12:05] LABS: Appearance Urine Clear (Clear); Bilirubin Urine Negative (Negative); Blood Urine Negative (Negative); Color Urine Yellow; Glucose Urine UA Negative (Negative); Ketones Urine Negative (Negative); Leukocyte Esterase Urine Negative (Negative); Nitrite Urine Negative (Negative); Protein Urine Negative (Negative); Specific Gravity Urine 1.017 (1.000-1.030); Urobilinogen Urine Negative (Negative)
[2018-07-27 12:30] LABS: BUN Creatinine Ratio 18.2 (10-20); Calcium 8.9 mg/dl (8.5-10.1); Creatinine Clr Calc Pharmacy 82.2 ml/min; Est GFR (African American) 91.6
[2018-08-04] MEDS ORDERED: HEPARIN SOD 5,000 UNIT/0.5 ML VIAL SQ SCH (06:00)
[2018-08-04] MEDS ORDERED: ACETAMINOPHEN 1000 MG/100 ML IV IV SCH (06:00)
[2018-08-04] MEDS ORDERED: LR 15ML/HR IV SCH ×2 (06:00)
[2018-08-04] MEDS ORDERED: ONDANSETRON INJ 2 MG/ML 2 ML VIAL IV PRN ×2 (06:48→13:18)
[2018-08-04] MEDS ORDERED: ATROPINE SULFATE 0.1 MG/ML 10ML SYR IV PRN (06:48)
[2018-08-04] MEDS ORDERED: HYDROmorphone INJ 1 MG/ML SYRINGE IV PRN (06:48)
[2018-08-04] MEDS ORDERED: KETOROLAC 30 MG/ML VIAL IV PRN (06:48)
[2018-08-04] MEDS ORDERED: LABETALOL HCL IV 5 MG/ML 20ML IV PRN (06:48)
[2018-08-04] MEDS ORDERED: BUPIVACAINE 0.5 % 5 MG/1 ML MPF 30ML VIAL ONE (07:03)
--- NOTE | 2018-08-04 07:04 | History & Physical Bridge Note ---
Date of Service August 04, 2018 History & Physical Bridge Note I have examined the patient, reviewed the History & Physical and in the interval since the performance of the History & Physical I have noted the following changes of clinical significance: no changes noted
[2018-08-04] MEDS ORDERED: fentaNYL citrate 100 MCG/2 ML VIAL ONE (07:07)
[2018-08-04] MEDS ORDERED: MIDAZOLAM HCL 1 MG/ML 2ML VIAL ONE (07:07)
[2018-08-04] MEDS: CEFAZOLIN 2000MG 2,000 MG/15 ML SYR IV SCH ×3 (07:28→16:29)
[2018-08-04] MEDS ORDERED: KETAMINE HCL INJ 50 MG/ML 10 ML VIAL ONE (08:15)
[2018-08-04] MEDS ORDERED: HYDROmorphone INJ 2 MG/ML SYR/VIAL ONE (08:17)
[2018-08-04] MEDS ORDERED: FLOSEAL HEMOSTATIC MATRIX 10ML TOP ONE (10:18)
[2018-08-04] MEDS ORDERED: SURGICEL ABSORB HEMOSTAT 2IN X 14IN TOP ONE (10:18)
[2018-08-04] MEDS ORDERED: DEXAMETHASONE SOD INJ 4 MG/ML VIAL ONE (10:48)
[2018-08-04] MEDS ORDERED: LIDOCAINE HCL 2% 2 ML VIAL/AMP(20MG/ML) INFIL ONE (10:48)
[2018-08-04] MEDS ORDERED: NEOSTIGMINE METHYLSULFATE 5 MG/5 ML SYR ONE (10:48)
[2018-08-04] MEDS ORDERED: ROCURONIUM BROMIDE 10 MG/ML 5 ML VIAL ONE (10:48)
[2018-08-04] MEDS ORDERED: ONDANSETRON INJ 2 MG/ML 2 ML VIAL ONE (10:48)
[2018-08-04] MEDS ORDERED: PROPOFOL IV EMULSION 10 MG/ML 20 ML VIAL IV ONE (10:48)
[2018-08-04] MEDS ORDERED: GLYCOPYRROLATE 0.2 MG/ML VIAL ONE ×2 (10:48→11:02)
[2018-08-04] MEDS ORDERED: ePHEDrine sulfate 50 MG/ML SYR ONE (10:48)
--- NOTE | 2018-08-04 11:20 | Operative Report ---
Post Operative Report Pre & Post Diagnosis Operation Date: 08/04/18 07:30 Pre-Op Diagnosis: Prostate Cancer Post-Op Diagnosis: Prostate Cancer Procedure Operation Date: 08/04/18 07:30 Actual Procedures p Robotic Laparoscopic Assisted Prostatectomy with Suprapubic Tube Placement(Not Applicable) - Atul Jones MD Surgeon Atul Jones MD Snow Fence Erector Maryan MCCONNELL Estimated Blood Loss 150 Findings Consistent with Post-Op Diagnosis Specimens Prostate + SVs, periprostatic fat Description of Procedure RALRP, SPT placement I attest to the content of the Intraoperative Record and any orders documented therein. Any exceptions are noted below.
[2018-08-04 11:43] LABS: Eosinophils # (auto) 0.01 K/uL (0-0.5); Eosinophils % (auto) 0.2 %; Hemoglobin 11.5 g/dL (14.0-18.0); Immature Granulocytes # (auto) 0.01 K/uL (0.00-0.02); Immature Granulocytes % (auto) 0.2 %; Lymphocytes # (auto) 0.38 K/uL (1.2-3.4); Lymphocytes % (auto) 6.1 %; Mean Corpuscular Volume 101.2 fL (80-100); Mean Platelet Volume 8.3 fL (7.4-10.4); Monocytes # (auto) 0.09 K/uL (0.11-0.59); Monocytes % (auto) 1.4 %; Neutrophils # (auto) 5.79 K/uL (1.4-6.5); Neutrophils % (auto) 92.1 %; Platelet Count 158 K/uL (130-400); RDW Coefficient of Variation 13.1 % (11.5-14.5); RDW Standard Deviation 47.9 fL (36.4-46.3); Red Blood Count 3.46 M/uL (4.7-6.1); White Blood Count 6.28 K/uL (4.8-10.8)
[2018-08-04 11:53] LABS: Mean Corpuscular Hgb Conc 32.9 g/dL (32-36)
[2018-08-04 11:59] LABS: BUN Creatinine Ratio 10.3 (10-20); Calcium 8.2 mg/dl (8.5-10.1); Creatinine Clr Calc Pharmacy 75.4 ml/min; Est GFR (African American) 82.5; Est GFR (Non-African American) 71.1; Potassium 4.2 mmol/L (3.5-5.1)
--- NOTE | 2018-08-04 12:08 | Anesthesiology Progress Note ---
Date of Service August 04, 2018 Anesthesia Post Procedure Vital Signs Vital Signs: Temp Pulse Pulse Pulse Resp BP BP 08/04/18 11:50 79 14 08/04/18 11:48 74 12 152/87 H 08/04/18 11:45 79 18 08/04/18 11:42 76 14 151/86 H 08/04/18 11:41 75 13 141/89 H 08/04/18 11:40 80 14 08/04/18 11:35 74 12 08/04/18 11:33 77 14 124/79 08/04/18 11:31 81 14 08/04/18 11:29 80 16 08/04/18 11:27 36.9 C 81 19 131/73 08/04/18 05:51 37.2 C 79 18 151/82 H Pulse Ox 08/04/18 11:50 98 08/04/18 11:48 98 08/04/18 11:45 100 08/04/18 11:42 99 08/04/18 11:41 98 08/04/18 11:40 100 08/04/18 11:35 100 08/04/18 11:33 99 08/04/18 11:31 99 08/04/18 11:29 97 08/04/18 11:27 96 08/04/18 05:51 97 Pain Intensity Lower Abdomen: Pain Intensity: 5 Transfer of Care Handoff Completed per policy Notes Mental Status: alert / awake / arousable Patient Amnestic to Procedure: Yes Nausea / Vomiting: adequately controlled Pain: adequately controlled Airway Patency, RR, SpO2: stable & adequate BP & HR: stable & adequate Hydration State: stable & adequate Anesthetic Complications: no major complications apparent
[2018-08-04] MEDS ORDERED: ACETAMINOPHEN 1,000 MG/100 ML VIAL IV PRN (13:18)
[2018-08-04] MEDS ORDERED: MoRPHine SULFATE 4 MG/ML 1 ML CARP\\VIAL IV PRN (13:18)
[2018-08-04] MEDS ORDERED: OXYCODONE HCL IR 5 MG TAB (IMMEDIATE RELEASE) PO PRN (13:18)
--- NOTE | 2018-08-04 13:47 | Operative Report ---
DATE OF OPERATION: 08/04/2018 PREOPERATIVE DIAGNOSIS: High volume [place] 3+3 adenocarcinoma of the prostate with a preoperative prostate-specific antigen of 5.2. POSTOPERATIVE DIAGNOSIS: Same. PROCEDURE: Robot-assisted laparoscopic radical retropubic prostatectomy, suprapubic tube placement. SURGEON: Atul Jones MD POINTING MACHINE OPERATOR: ENEDINA Kevin. Public Relations Account Supervisor present throughout the case for placement of ports, retraction of tissues, suction, passage of sutures and instruments, in general patient safety. ESTIMATED BLOOD LOSS: 150 mL. INTRAVENOUS FLUIDS: 1500 mL of crystalloid. ANESTHESIA: General anesthesia with endotracheal intubation plus local at port sites. SPECIMENS SENT TO PATHOLOGY: Periprostatic fat, prostate plus seminal vesicles. DRAINS LEFT IN PLACE: Include a #10 ARRON drain in the left lower quadrant, 18-St Lucian silicone Jain catheter to gravity drainage with 10 mL of sterile water in the balloon, and a 16-St Lucian suprapubic catheter with 10 mL of sterile water in the balloon. FINDINGS: Watertight anastomosis after completion of case. Significant pelvic and periprostatic inflammation noted to be present. No evidence of any rectal injury and excellent hemostasis. COMPLICATIONS: None. BRIEF HISTORY: Mr. Rand is a pleasant 67-year-old male who has undergone an office biopsy by Dr. Cohen and was found to have a high volume Lexi 3+3 adenocarcinoma of the prostate. Please see H&P for further details. After discussion of risks and benefits, the patient has decided upon a robotic prostatectomy to manage his disease. Seeing his [facility] nomogram risk of lymph node involvement of 1%, pelvic lymph node dissection is not planned. Intravenous Ancef is provided for antibiotic coverage as well as intravenous Tylenol for perioperative analgesia. SCDs and subcutaneous heparin are used for DVT prophylaxis. DESCRIPTION OF PROCEDURE: The patient was properly identified and brought into the operative suite after identification of appropriate consent on the chart. General anesthesia with endotracheal intubation was initiated. The patient was prepped and draped in standard fashion for this procedure. radio time buyer-out procedure was followed. Jain catheter was introduced and placed to gravity drainage. All port sites were anesthetized with local prior to incision. Supraumbilical transverse incision was made, and a 0 degree 12 mm laparoscope was used through a visual obturator, 12 mm in size was used to enter the abdomen under direct visualization. Abdomen was insufflated to 15 mmHg and surveyed. No evidence of any intraabdominal injury appreciated. Ports were placed for fourth arm robotic template including two left-sided 7 mm robotic ports, one right-sided 7 mm robotic port, and a 5 and 12 mm acute care nursing assistant port. The patient was placed in Trendelenburg, and robot was brought in and docked. A 0 degree lens was used to free the sigmoid adhesions and then drop the bladder down to the level of the pubic bone. Again, inflammation within the space of Retzius of unknown origin was appreciated. Prostate was defatted, and periprostatic fat was sent for pathologic analysis. Endopelvic fascia was sharply entered on both sides and noted to be attenuated on the right hand side. Dorsal vein was skeletonized and noted to be somewhat thick. 0 Vicryl suture on a CT1 needle was used to control this in a [id number] fashion. After this was complete, attention was turned to the bladder neck, which was placed on traction using a 30 degree down lens. This was skeletonized down to the level of the Jain catheter. This was then used with anterior traction to allow for the posterior bladder neck to be divided. An excellent bladder neck aperture was noted. Posterior bladder neck was dropped down in the midline until the vas and seminal vesicles were identified posterior to the prostate gland. Vasa were circumscribed and divided. Seminal vesicles were dissected free using judicious Bovie cautery as necessary. Rectum was dropped in the midline down to the level of the apex gland. Some venous vessels were appreciated at the level of the rectourethralis fibers. Bladder neck pedicles were skeletonized and divided. Cold clips were used at the level of the prostatic pedicles for control. On the right hand side, a questionable false plane with capsulotomy was appreciated, and plane of dissection was corrected to allow for a clean dissection around the catheter. A rim of neurovascular tissue was left on the prostate gland seeing the patient's lack of baseline sexual activity and high volume disease. Dissection was carried out circumferentially to the level of the apex of the prostate. Attention was then turned to the dorsal venous complex, which was divided using hot scissors. Urethra was skeletonized and divided with an excellent urethral stump. Rectourethralis fibers were divided, and prostate was brought up into the abdomen where it was placed within an Endo Catch bag for retrieval at the end of the case. Attention was then turned to the pelvis which was filled with saline irrigation. Rectum was insufflated under the irrigation and noted to be free of any injury or thinning. Again, excellent hemostasis was appreciated. FloSeal tissue sealant was placed over the prostatic bed, and a double armed V-Loc suture was used to create a running circumferential vesicourethral anastomosis. An 18-St Lucian silicone catheter was visualized entering the bladder prior to completion of closure. Anastomosis was tested and noted to be watertight. The Jain balloon was deflated and brought back into the urethra. After filling the bladder, a suprapubic catheter was introduced into the abdomen and then into the bladder under direct visualization. 16 silicone catheter was placed via the trocar, and balloon was inflated with 10 mL of sterile saline. Urethral Jain was reintroduced, and 10 mL of sterile water was placed within the balloon. Catheters were irrigated with isovolumic return from one to the other. Fourth arm was removed, and a #10 ARRON drain was brought in via the fourth arm port. Remaining FloSeal was placed at the level of the anastomosis and prostatic gutters. Robotic instruments were removed, and the camera was brought in via the acute care nursing assistant port. Strings from the Endo Catch bag was brought out through the supraumbilical port, and ports were removed. The supraumbilical port was enlarged sufficiently to allow for easy removal of the specimen bag. Excess carbon dioxide gas was removed from the abdomen, and supraumbilical incision was closed using an 0 Vicryl suture on a UR-5 needle in a running fashion. 2-0 silk was used to secure the suprapubic tube and ARRON drain in place. Skin was closed using 4-0 Monocryl at port sites followed by Dermabond. Anesthesia was reversed. The patient was transferred to recovery room in stable condition. FOLLOWUP CARE: The patient will be admitted to the floor for standard postoperative management. I attest to the content of the Intraoperative Record and any orders documented therein. Any exceptions are noted below. RIC
[2018-08-04 13:55] LABS: Prothrombin Time 10.3 Seconds (9.0-12.0)
[2018-08-04] MEDS: FAMOTIDINE 20 MG in SYRINGE 3 ML IV SCH ×2 (15:15→22:23)
[2018-08-04] MEDS: LOSARTAN POTASSIUM 50 MG TAB PO SCH (15:15)
[2018-08-04] MEDS: LACTATED RINGER'S 1,000 ML IV SCH (15:15)
--- NOTE | 2018-08-04 15:24 | Progress Note ---
Date of Service August 04, 2018 Subjective Patient seen in PM rounds in room, somnolent but in good spirits. Denies pain. Labs as below. Reports + appetite, no nausea or emesis. No OOB yet. NAD S1 S2 Good respiratory excursion. Soft, ND, NT inc c/d/i, drains in place, + UOP via SPT and noguera. A/P Patient doing well POD#0 s/p RALRP, SPT. Full liquids tonight if tolerated. OOBTC tonight, can ambulate if doing well. Findings and care reviewed with patient and family. Continue care per routine. Laboratory Results - last 24 hr 08/04/18 08/04/18 08/04/18 11:32 11:32 13:33 WBC 6.28 RBC 3.46 L Hgb 11.5 L Hct 35.0 L MCV 101.2 H MCH 33.2 MCHC 32.9 RDW Std Deviation 47.9 H RDW Coeff of Myriam 13.1 Plt Count 158 MPV 8.3 Immature Gran % (Auto) 0.2 Neut % (Auto) 92.1 Lymph % (Auto) 6.1 [place] % (Auto) 1.4 Eos % (Auto) 0.2 Baso % (Auto) 0.0 Immature Gran # (Auto) 0.01 Neut # (Auto) 5.79 Lymph # (Auto) 0.38 L [place] # (Auto) 0.09 L Eos # (Auto) 0.01 Baso # (Auto) 0.00 PT 10.3 INR 1.0 Sodium 140 Potassium 4.2 Chloride 110 H Carbon Dioxide 25 Anion Gap 5.0 BUN 11 Creatinine 1.08 Est Cr Clr Drug Dosing 75.4 Est GFR ( Amer) 82.5 Est GFR (Non-Af Amer) 71.1 BUN/Creatinine Ratio 10.3 Glucose 150 H Calcium 8.2 L Results & Data Vital Signs (Past 12 Hours) Vital Signs Temp Pulse Pulse Pulse Pulse Pulse Resp 08/04/18 15:11 36.5 C 82 18 08/04/18 14:15 79 16 08/04/18 13:44 36.6 C 79 17 08/04/18 13:15 37.0 C 84 16 08/04/18 12:54 37.0 C 08/04/18 12:51 80 14 06/18/19 12:50 76 14 08/04/18 12:46 72 14 08/04/18 12:45 68 14 08/04/18 12:41 73 12 08/04/18 12:40 64 14 08/04/18 12:36 63 14 08/04/18 12:35 62 14 08/04/18 12:31 77 13 08/04/18 12:30 71 14 08/04/18 12:26 68 14 08/04/18 12:25 81 14 08/04/18 12:21 74 14 08/04/18 12:20 63 14 08/04/18 12:16 70 14 08/04/18 12:15 73 14 08/04/18 12:11 37.1 C 75 14 08/04/18 12:10 72 14 08/04/18 12:06 74 14 08/04/18 12:05 70 14 08/04/18 12:01 67 14 08/04/18 12:00 74 16 08/04/18 11:55 74 14 08/04/18 11:53 65 14 08/04/18 11:50 79 14 08/04/18 11:48 74 12 08/04/18 11:45 79 18 08/04/18 11:42 76 14 08/04/18 11:41 75 13 08/04/18 11:40 80 14 08/04/18 11:35 74 12 08/04/18 11:33 77 14 08/04/18 11:31 81 14 08/04/18 11:29 80 16 08/04/18 11:27 36.9 C 81 19 08/04/18 05:51 37.2 C 79 18 BP BP Pulse Ox 08/04/18 15:11 124/73 96 08/04/18 14:15 134/78 98 08/04/18 13:44 132/81 98 08/04/18 13:15 155/89 H 97 08/04/18 12:54 97 08/04/18 12:51 144/85 H 97 08/04/18 12:50 95 08/04/18 12:46 140/83 95 08/04/18 12:45 96 08/04/18 12:41 135/83 96 08/04/18 12:40 95 08/04/18 12:36 148/76 H 95 08/04/18 12:35 96 08/04/18 12:31 167/82 H 97 08/04/18 12:30 96 08/04/18 12:26 154/82 H 96 08/04/18 12:25 96 08/04/18 12:21 138/75 97 18 12:20 96 08/04/18 12:16 147/78 H 95 08/04/18 12:15 92 08/04/18 12:11 143/80 H 97 08/04/18 12:10 96 08/04/18 12:06 149/82 H 96 08/04/18 12:05 98 08/04/18 12:01 141/94 H 94 08/04/18 12:00 96 08/04/18 11:55 147/80 H 94 08/04/18 11:53 147/80 H 94 08/04/18 11:50 98 08/04/18 11:48 152/87 H 98 18 11:45 100 1819 11:42 151/86 H 99 08/04/18 11:41 141/89 H 98 1819 11:40 100 1819 11:35 100 18/19 11:33 124/79 99 18/19 11:31 99 1819 11:29 97 18 11:27 131/73 96 08/04/18 05:51 151/82 H 97
[2018-08-04] MEDS: DOCUSATE SODIUM 100 MG CAP PO SCH (20:56)
[2018-08-04] MEDS: HEPARIN SOD 5,000 UNIT/0.5 ML VIAL SQ SCH (20:56)
[2018-08-05] MEDS: CEFAZOLIN 2000MG 2,000 MG/15 ML SYR IV SCH ×2 (00:01→08:03)
[2018-08-05] MEDS: LACTATED RINGER'S 1,000 ML IV SCH (00:01)
[2018-08-05] MEDS: OXYCODONE HCL IR 5 MG TAB (IMMEDIATE RELEASE) PO PRN ×2 (03:27→09:27)
[2018-08-05 07:32] LABS: Hematocrit (blood only) 31.7 % (42-52); Hemoglobin 10.6 g/dL (14.0-18.0); Immature Granulocytes # (auto) 0.01 K/uL (0.00-0.02); Immature Granulocytes % (auto) 0.1 %; Lymphocytes # (auto) 0.95 K/uL (1.2-3.4); Lymphocytes % (auto) 12.5 %; Mean Corpuscular Hgb Conc 33.4 g/dL (32-36); Mean Platelet Volume 8.4 fL (7.4-10.4); Monocytes % (auto) 10.5 %; Neutrophils # (auto) 5.87 K/uL (1.4-6.5); Neutrophils % (auto) 76.9 %; Platelet Count 162 K/uL (130-400); RDW Coefficient of Variation 12.9 % (11.5-14.5); RDW Standard Deviation 46.9 fL (36.4-46.3); Red Blood Count 3.17 M/uL (4.7-6.1); White Blood Count 7.63 K/uL (4.8-10.8)
[2018-08-05] MEDS: DOCUSATE SODIUM 100 MG CAP PO SCH (08:02)
[2018-08-05] MEDS: LOSARTAN POTASSIUM 50 MG TAB PO SCH (08:02)
[2018-08-05] MEDS: FAMOTIDINE 20 MG in SYRINGE 3 ML IV SCH (08:03)
[2018-08-05 08:07] LABS: Est GFR (African American) 95.1; Potassium 4.1 mmol/L (3.5-5.1)
--- NOTE | 2018-08-05 08:07 | Anesthesiology Progress Note ---
Date of Service August 05, 2018 Anesthesia Post Procedure Vital Signs Vital Signs: Temp Pulse Pulse Pulse Pulse Pulse Resp 08/05/18 07:13 37.0 C 76 17 08/05/18 03:15 37.3 C 83 16 08/04/18 23:24 37.3 C 81 16 08/04/18 19:18 37.2 C 80 18 08/04/18 16:15 75 16 08/04/18 15:11 36.5 C 82 18 08/04/18 14:15 79 16 08/04/18 13:44 36.6 C 79 17 08/04/18 13:15 37.0 C 84 16 08/04/18 12:54 37.0 C 08/04/18 12:51 80 14 08/04/18 12:50 76 14 08/04/18 12:46 72 14 08/04/18 12:45 68 14 08/04/18 12:41 73 12 08/04/18 12:40 64 14 08/04/18 12:36 63 14 08/04/18 12:35 62 14 08/04/18 12:31 77 13 08/04/18 12:30 71 14 08/04/18 12:26 68 14 08/04/18 12:25 81 14 08/04/18 12:21 74 14 08/04/18 12:20 63 14 08/04/18 12:16 70 14 08/04/18 12:15 73 14 08/04/18 12:11 37.1 C 75 14 08/04/18 12:10 72 14 08/04/18 12:06 74 14 08/04/18 12:05 70 14 08/04/18 12:01 67 14 08/04/18 12:00 74 16 08/04/18 11:55 74 14 08/04/18 11:53 65 14 08/04/18 11:50 79 14 08/04/18 11:48 74 12 08/04/18 11:45 79 18 08/04/18 11:42 76 14 08/04/18 11:41 75 13 08/04/18 11:40 80 14 08/04/18 11:35 74 12 08/04/18 11:33 77 14 08/04/18 11:31 81 14 08/04/18 11:29 80 16 08/04/18 11:27 36.9 C 81 19 BP BP Pulse Ox 08/05/18 07:13 116/72 92 08/05/18 03:15 120/71 93 18 23:24 118/67 94 08/04/18 19:18 125/70 94 18 16:15 125/77 95 08/04/18 15:11 124/73 96 08/04/18 14:15 134/78 98 08/04/18 13:44 132/81 98 08/04/18 13:15 155/89 H 97 08/04/18 12:54 97 08/04/18 12:51 144/85 H 97 08/04/18 12:50 95 08/04/18 12:46 140/83 95 08/04/18 12:45 96 08/04/18 12:41 135/83 96 08/04/18 12:40 95 08/04/18 12:36 148/76 H 95 08/04/18 12:35 96 08/04/18 12:31 167/82 H 97 08/04/18 12:30 96 08/04/18 12:26 154/82 H 96 08/04/18 12:25 96 08/04/18 12:21 138/75 97 08/04/18 12:20 96 08/04/18 12:16 147/78 H 95 08/04/18 12:15 92 08/04/18 12:11 143/80 H 97 08/04/18 12:10 96 08/04/18 12:06 149/82 H 96 08/04/18 12:05 98 08/04/18 12:01 141/94 H 94 08/04/18 12:00 96 08/04/18 11:55 147/80 H 94 08/04/18 11:53 147/80 H 94 08/04/18 11:50 98 08/04/18 11:48 152/87 H 98 18 11:45 100 18/19 11:42 151/86 H 99 1819 11:41 141/89 H 98 08/04/18 11:40 100 18/19 11:35 100 18/19 11:33 124/79 99 1819 11:31 99 18 11:29 97 08/04/18 11:27 131/73 96 Pain Intensity Lower Abdomen: Pain Intensity: 2 Notes Mental Status: alert / awake / arousable and participated in evaluation Nausea / Vomiting: adequately controlled Pain: adequately controlled Airway Patency, RR, SpO2: stable & adequate BP & HR: stable & adequate Hydration State: stable & adequate
[2018-08-05 08:08] LABS: BUN Creatinine Ratio 9.1 (10-20); Calcium 8.5 mg/dl (8.5-10.1); Creatinine Clr Calc Pharmacy 84.8 ml/min
[2018-08-05] MEDS: HEPARIN SOD 5,000 UNIT/0.5 ML VIAL SQ SCH (08:15)
--- NOTE | 2018-08-05 08:21 | Urology Progress Note ---
Date of Service August 05, 2018 Assessment & Plan (1) Prostate cancer: A/P 67 yo male POD#1 s/p RALRP, SPT placement. DC noguera, HTIVF Ambulate in halls. Advance diet. Anticipate DC ARRON and DC home later today. Outpatient expected course reviewed, appointments in place. Doing well. Patient vocalizes understanding of the treatment plan. Subjective 67 yo male POD#1 s/p RALRP, SPT. He notes OOBTC last PM, lyn clears, no emesis. Expected lower abdominal pain, would prefer noguera removal today. Past notes reviewed, good total UOP, minimal ARRON OP. No other complaints save for a few bladder spasms. Review of Systems Constitutional: no fever and no chills Eyes: no blind spots Ear, Nose, Mouth, Throat: no ear trauma Respiratory: no cough and no hemoptysis Cardiovascular: no chest pain Gastrointestinal: + abdominal pain; no nausea and no vomiting Genitourinary: no hematuria Musculoskeletal: no deformity Integumentary: no acne and no boil Neurologic: no gait abnormality and no paralysis Psychiatric: no hopelessness Endocrine: + fatigue Hematologic / Lymphatic: no easy bleeding Physical Exam Constitutional: WD/WN, vitals as above Eyes: eyes not dysmorphic ENMT: Ears: no external ear abnormality Neck: trachea midline; no anterior neck swelling Respiratory: no respiratory distress and does not use accessory muscles Cardiovascular: Vessels: radial pulses present Gastrointestinal (Abdomen): Percussion/Palpation: abdomen soft; abdomen nontender inc c/d/i with dermabond Skin: normal turgor Neurologic: awake; not obtunded Psychiatric: Orientation: oriented x 3 Lymphatic: no lymphedema Results & Data Vital Signs (Past 12 Hours) Vital Signs Temp Pulse Resp BP Pulse Ox 08/05/18 07:13 37.0 C 76 17 116/72 92 08/05/18 03:15 37.3 C 83 16 120/71 93 08/04/18 23:24 37.3 C 81 16 118/67 94 Laboratory Results Laboratory Results - last 24 hr 08/04/18 08/04/18 08/04/18 11:32 11:32 13:33 WBC 6.28 RBC 3.46 L Hgb 11.5 L Hct 35.0 L MCV 101.2 H MCH 33.2 MCHC 32.9 RDW Std Deviation 47.9 H RDW Coeff of Myriam 13.1 Plt Count 158 MPV 8.3 Immature Gran % (Auto) 0.2 Neut % (Auto) 92.1 Lymph % (Auto) 6.1 [place] % (Auto) 1.4 Eos % (Auto) 0.2 Baso % (Auto) 0.0 Immature Gran # (Auto) 0.01 Neut # (Auto) 5.79 Lymph # (Auto) 0.38 L [place] # (Auto) 0.09 L Eos # (Auto) 0.01 Baso # (Auto) 0.00 PT 10.3 INR 1.0 Sodium 140 Potassium 4.2 Chloride 110 H Carbon Dioxide 25 Anion Gap 5.0 BUN 11 Creatinine 1.08 Est Cr Clr Drug Dosing 75.4 Est GFR ( Amer) 82.5 Est GFR (Non-Af Amer) 71.1 BUN/Creatinine Ratio 10.3 Glucose 150 H Calcium 8.2 L Hepatitis C Ab Screen 08/05/18 08/05/18 08/05/18 07:05 07:05 07:05 WBC 7.63 RBC 3.17 L Hgb 10.6 L Hct 31.7 L MCV 100.0 MCH 33.4 MCHC 33.4 RDW Std Deviation 46.9 H RDW Coeff of Myriam 12.9 Plt Count 162 MPV 8.4 Immature Gran % (Auto) 0.1 Neut % (Auto) 76.9 Lymph % (Auto) 12.5 [place] % (Auto) 10.5 Eos % (Auto) 0.0 Baso % (Auto) 0.0 Immature Gran # (Auto) 0.01 Neut # (Auto) 5.87 Lymph # (Auto) 0.95 L [place] # (Auto) 0.80 H Eos # (Auto) 0.00 Baso # (Auto) 0.00 PT INR Sodium 140 Potassium 4.1 Chloride 109 H Carbon Dioxide 25 Anion Gap 6.0 BUN 9 Creatinine 0.96 Est Cr Clr Drug Dosing 84.8 Est GFR ( Amer) 95.1 Est GFR (Non-Af Amer) 82.0 BUN/Creatinine Ratio 9.1 L Glucose 122 H Calcium 8.5 Hepatitis C Ab Screen Pending
[2018-08-05] MEDS ORDERED: SIMVASTATIN 20 MG TAB PO SCH (09:00)
--- NOTE | 2018-08-05 11:56 | Communication Note ---
Date of Service: August 05, 2018 Patient reevaluated in late morning rounds. Reports feeling well. Passing gas. Has been up ambulating hallways with nursing. Pain is controlled. Urethral Jain removed and SP remains patent, draining clear yellow urine. Expected post-op healing and discharge instructions reviewed. All patient questions answered. Likely stable for DC after lunch, if advanced diet is tolerated.
--- NOTE | 2018-08-20 14:22 | Discharge Summary ---
Date of Service August 20, 2018 Admission HPI Per Admitting Provider 67 yo male with prostate cancer here for robotic prostatectomy and SPT placement. Please see H&P for further details. Admission Exam (Per Admitting) Constitutional WD/WN, vitals as above Eyes eyes not dysmorphic ENMT Ears: no external ear abnormality Neck trachea midline; no anterior neck swelling Respiratory no respiratory distress and does not use accessory muscles Cardiovascular Vessels: radial pulses present Gastrointestinal (Abdomen) Percussion/Palpation: abdomen soft; abdomen nontender Skin normal turgor Neurologic awake; not obtunded Psychiatric Orientation: oriented x 3 Lymphatic no lymphedema Specialty Data Urology Patient admitted after uncomplicated RALRP with SPT placement. Please see H&P for further details. Diet and activity were advanced until patient was ambulatory, taking regular diet and comfortable on oral meds POD#1. Considered stable for DC home at this time. Discharge Data Procedures Performed Operation Date: 08/04/18 07:30 Actual Procedures p Robotic Laparoscopic Assisted Prostatectomy with Suprapubic Tube Placement(Not Applicable) - Atul Jones MD Hospital Course (1) Prostate cancer: A/P 67 yo male POD#1 s/p RALRP, SPT placement. DC noguera, HTIVF Ambulate in halls. Advance diet. Anticipate DC ARRON and DC home later today. Outpatient expected course reviewed, appointments in place. Doing well. Patient vocalizes understanding of the treatment plan. Discharge Instructions See DC med list and instruction sheet. Outpatient appointments confirmed, patient to contact us with any difficulties postop.
== END 2018-08-05 15:11 | disposition home or self-care (01) | DRG 708 ==
LOC: ASU 05:25 → 3W 13:14

== ENCOUNTER 2024-02-20 05:00 | Observation (INO) ==
--- NOTE | 2024-01-21 15:00 | PAT Medication Instructions ---
Medication Instructions Date of Service January 21, 2024 Home Medications Medication Instructions Recorded celecoxib 200 mg capsule (Celebrex) 200 mg PO QAM #90 caps 02/27/23 alprazolam 1 mg tablet (Xanax) 1 mg PO UD PRN Anxiety #4 tabs 03/05/23 cyclobenzaprine 10 mg tablet 10 mg PO .QD-BID PRN muscle spasm 09/16/23 #60 tabs losartan 100 mg tablet 100 mg PO QAM #90 tabs 12/02/23 prednisone 10 mg tablet See Rx Instructions PO DAILY #30 12/16/23 tabs tramadol 50 mg tablet 50 mg PO Q6H PRN pain #50 tabs 12/28/23 atorvastatin 20 mg tablet 20 mg PO QAM #90 tabs 01/12/24 celecoxib 200 mg capsule (Celebrex) 200 mg PO QAM alprazolam 1 mg tablet (Xanax) 1 mg PO UD PRN Anxiety cyclobenzaprine 10 mg tablet 10 mg PO .QD-BID PRN muscle spasm losartan 100 mg tablet 100 mg PO QAM prednisone 10 mg tablet See Rx Instructions PO DAILY tramadol 50 mg tablet 50 mg PO Q6H PRN pain atorvastatin 20 mg tablet 20 mg PO QAM docusate sodium 100 mg capsule (Stool Softener) 100 mg PO DAILY PRN Constipation oxycodone 5 mg tablet 5 mg PO Q6H PRN Pain pantoprazole 20 mg tablet,delayed release 20 mg PO QAM Continue as directed alprazolam 1 mg tablet (Xanax) 1 mg PO UD PRN Anxiety (if needed) prednisone 10 mg tablet See Rx Instructions PO DAILY ASK your surgeon for instructions celecoxib 200 mg capsule (Celebrex) 200 mg PO QAM DO NOT take the morning of surgery losartan 100 mg tablet 100 mg PO QAM docusate sodium 100 mg capsule (Stool Softener) 100 mg PO DAILY PRN Constipation Take morning of surgery With a small sip of water, OTHERWISE NOTHING TO EAT OR DRINK AFTER MIDNIGHT: cyclobenzaprine 10 mg tablet 10 mg PO .QD-BID PRN muscle spasm (if needed) tramadol 50 mg tablet 50 mg PO Q6H PRN pain (if needed) atorvastatin 20 mg tablet 20 mg PO QAM oxycodone 5 mg tablet 5 mg PO Q6H PRN Pain (if needed) pantoprazole 20 mg tablet,delayed release 20 mg PO QAM Take evening before surgery cyclobenzaprine 10 mg tablet 10 mg PO .QD-BID PRN muscle spasm (if needed) tramadol 50 mg tablet 50 mg PO Q6H PRN pain (if needed) docusate sodium 100 mg capsule (Stool Softener) 100 mg PO DAILY PRN Constipation (if needed) oxycodone 5 mg tablet 5 mg PO Q6H PRN Pain (if needed) Other Notes If you have any questions please call us at [phone] or [phone] or [phone] or [phone]
--- NOTE | 2024-01-26 13:25 | Anesthesiology Consultation ---
Date of Service January 26, 2024 Assessment & Plan (1) Encounter for pre-operative examination: Plan - Outpatient joint assessment: Patient is currently scheduled for inpatient pathway. If re-evaluated and patient/surgeon requests outpatient pathway, patient is acceptable candidate for outpatient joint program from anesthesia standpoint pending surgeon's office assessment of pt motivation/support/completion of same day joint program preop requirements. Chart Review Chart Review: Acceptable Risk for Surgery and Patient seen in Pre Admission Testing Teaching & Discussion Pre-Anesthesia Teaching/Discussion Notes: Instructed NPO after midnight before surgery, except medications with 15 cc of water. Medication instructions provided according to the PAT guidelines. History Surgery Operation Date: 02/20/24 13:00 Proposed Procedures p Left Anterior Total Hip Arthroplasty - Frederic Russo DO Height/Weight Height: 5 ft 8 in Weight: 92.4 kg Allergies Allergy/AdvReac Type Severity Reaction Status Date / Time amlodipine AdvReac Mild feet Verified 01/21/24 12:07 swelling Medications Home Medications Medication Instructions Recorded Confirmed Last Taken celecoxib 200 mg capsule (Celebrex) 200 mg PO QAM #90 caps 02/27/23 01/21/24 Unknown alprazolam 1 mg tablet (Xanax) 1 mg PO UD PRN Anxiety #4 tabs 03/05/23 01/21/24 Unknown cyclobenzaprine 10 mg tablet 10 mg PO .QD-BID PRN muscle spasm 09/16/23 01/21/24 Unknown #60 tabs losartan 100 mg tablet 100 mg PO QAM #90 tabs 12/02/23 01/21/24 Unknown tramadol 50 mg tablet 50 mg PO Q6H PRN pain #50 tabs 12/28/23 01/21/24 Unknown atorvastatin 20 mg tablet 20 mg PO QAM #90 tabs 01/12/24 01/21/24 Unknown docusate sodium 100 mg capsule 100 mg PO DAILY PRN Constipation 01/21/24 01/21/24 Unknown (Stool Softener) oxycodone 5 mg tablet 5 mg PO Q6H PRN Pain 01/21/24 01/21/24 Unknown pantoprazole 20 mg tablet,delayed 20 mg PO QAM 01/21/24 01/21/24 Unknown release Past Medical History Medical History (Updated 01/26/24 @ 13:44 by Cindy Ramos PA-C) Chronic cough denies change or worsening Diverticular disease controlled at present Elevated MCV Fatty liver Gilbert disease no issues at present History of COVID-19 (~06/2021) denies hospitalization-symptoms resolved History of prostate cancer 2019 HLD (hyperlipidemia) HTN (hypertension) controlled, stable per pt Inguinal hernia no interventions at this time > just fatty tissue per pt when saw Dr. Rice Neck arthritis just stiffness, ROM still WNL per pt Osteoarthritis Post-nasal drip Sensorineural hearing loss (SNHL) of both ears Patient denies h/o stroke, seizures, heart attack, heart failure, DM, blood clots/DVTs or blood transfusions. Exercise / Class Metabolic Activity III < 4 Walking/Shop/Light housework (ambulates with walker, denies chest discomfort or shortness of breath with usual activities) Past Family History Family History Grandfather Family history of bladder cancer PATERNAL Grandfather (Maternal) Family history of lung cancer Lung cancer Mother , age 71 COPD (chronic obstructive pulmonary disease) Stroke Hypertension Lung disease Father , age 70 COPD (chronic obstructive pulmonary disease) Lung disease Brother Rheumatoid arthritis Denies family history of Prostate cancer Breast cancer Colorectal cancer Colonic polyp Past Surgical History Surgical History History of colonoscopy History of esophagogastroduodenoscopy (EGD) History of prostatectomy History of tonsillectomy surgery age 6 Past Anesthesia History No Hx of Anesthesia Complications and No Family Hx of Anesthesia Complications History of PONV No Hx of PONV and No Hx of Motion Sickness Social History Smoking Status: Former smoker tobacco type: cigarettes Do You Dip or Chew Tobacco: No Smoking End Date: age 24 Hx Alcohol Use: Yes Alcohol type: beer alcohol intake frequency: 3 or more drinks per day Hx Substance Use: Yes substance use type: marijuana Substance Use Type Other:: just on occasion > advised 3 day or longer hold Last Used Substance Other:: "just last week"-end of 08/2021 Review of Systems Snoring, denies witnessed apneas. Patient denies chest pain, shortness of breath, dyspnea on exertion, fever, chills, cough, wheezing, or palpitations. He states is on pantoprazole for h/o H. pylori. Physical Exam Vital Signs Vitals BP 137/87 P 103 (Pt states is often anxious in clinical settings) TEMP 98.3 SP02 95% on RA RESP 18 Physical Patient resting comfortably in chair in no acute distress, alert and oriented, responding appropriately throughout visit Full cervical extension range of motion without pain TMD 3.5 finger breadths Mallampati Score 2 Dentition: several caps/crows, denies chipped or loose teeth, implants or bridges Lungs: normal respiratory effort. Good air movement, clear throughout to auscultation, no adventitious breath sounds Cardiac: regular rate and rhythm, no murmurs noted Carotid arteries: negative bruit bilat Lab Results Anesthesia Preop Results Results Anesthesia Widget: WBC 7.13 K/ul (4.8-10.8) 01/26/24 Hgb 14.6 g/dl (14.0-18.0) 01/26/24 Hct 42.9 % (42.0-52.0) 01/26/24 Plt 254 K/uL (130-400) 01/26/24 Na 142 mmol/L (136-145) 01/26/24 K 3.5 mmol/L (3.5-5.1) 01/26/24 Cl 107 mmol/L (98-107) 01/26/24 CO2 25 mmol/L (21-32) 01/26/24 BUN 12 mg/dl (6-23) 01/26/24 Creat 1.11 mg/dl (0.6-1.4) 01/26/24 Glucose Level 97 mg/dl (70-99(Fasting)) 01/26/24 PT 11.0 Seconds (9.0-12.0) 01/26/24 PTT 26 Seconds (21-31) 01/26/24 INR 1.0 (0.9-1.1) 01/26/24 Blood Type O Positive 01/26/24 Antibody Screen NEGATIVE 01/26/24 Testing Electrocardiogram Date: 01/26/24 Poor data quality Sinus tachycardia, rate 101 bpm - I was notified by landfill gas technician that patient's HR was fluctuating during EKG and requested my review. Patient's HR was low 100s (he states is often up to 120s in clinical settings due to anxiety). HR fluctuated while on EKG leads up to sustained 130 bpm with patient stress, rhythm was regular throughout. With distraction and relaxation techniques, HR remained in low 100s. Patient asymptomatic. Chest X-Ray Date: 01/26/24 No acute chest disease. Stress Test Date: 07/24/18 MPHR 100% Negative exercise stress echo and ECG for ischemia EF 60% Normal LV wall motion Mild cLVH
[2024-02-20] MEDS: ACETAMINOPHEN 500 MG TAB PO SCH ×2 (06:01→14:50)
[2024-02-20] MEDS: LR 500ML BOLUS, THEN 15ML/HR IV SCH (06:01)
[2024-02-20] MEDS: dexAMETHasone**PF** 10 MG/ML VIAL IV SCH (06:02)
[2024-02-20] MEDS: LR 60ML/HR IV SCH (06:02)
[2024-02-20] MEDS: GABAPENTIN 300 MG CAP PO SCH (06:02)
[2024-02-20] MEDS: FAMOTIDINE 20 MG TAB PO SCH (06:02)
[2024-02-20] MEDS ORDERED: ROPIVACAINE 0.5% 5 MG/ML 30 ML VIAL ONE (06:19)
[2024-02-20] MEDS ORDERED: fentaNYL citrate PF 100 MCG/2 ML VIAL IV PRN (06:36)
[2024-02-20] MEDS ORDERED: ATROPINE SULFATE 0.1 MG/ML 10ML SYR IV PRN (06:36)
[2024-02-20] MEDS ORDERED: HYDROmorphone INJ 1 MG/ML SYRINGE IV PRN (06:36)
[2024-02-20] MEDS ORDERED: ePHEDrine sulfate 50 MG/ML AMP IV PRN (06:36)
[2024-02-20] MEDS ORDERED: ONDANSETRON INJ 2 MG/ML 2 ML VIAL IV PRN ×2 (06:36→09:31)
[2024-02-20] MEDS ORDERED: MIDAZOLAM HCL 1 MG/ML 2ML VIAL ONE (06:38)
[2024-02-20] MEDS ORDERED: PROPOFOL IV EMULSION 10 MG/ML 20 ML VIAL IV ONE ×2 (06:40→08:10)
[2024-02-20] MEDS: TRANEXAMIC ACID 1,000 MG **IV Pre-op IV SCH (06:42)
--- NOTE | 2024-02-20 06:49 | History & Physical Bridge Note ---
Date of Service February 20, 2024 History & Physical Bridge Note I have examined the patient, reviewed the History & Physical and in the interval since the performance of the History & Physical I have noted the following changes of clinical significance: no changes noted
[2024-02-20] MEDS: ceFAZolin 2000MG 2,000 MG/15 ML SYR IV SCH (07:00)
[2024-02-20] MEDS: ORTHO JOINT ANESTHETIC ONE (07:38)
[2024-02-20] MEDS: ROPIV 0.5% 246mg, Ketorolac 30mg, EPINEPHrine 0.5mg in NSS INFIL SCH (07:42)
[2024-02-20] MEDS: TRANEXAMIC ACID 1,000 MG **IV Intra-op IV SCH (08:00)
--- NOTE | 2024-02-20 08:00 | Operative Report ---
PG Post Operative Report Pre & Post Diagnosis Operation Date: 02/20/24 07:00 Pre-Op Diagnosis: Left Hip Osteoarthritis Post-Op Diagnosis: Left Hip Osteoarthritis I identified the patient and participated in the time-out.: Yes Procedure Operation Date: 02/20/24 07:00 Actual Procedures p Left Anterior Total Hip Arthroplasty(Left) - Frederic Russo DO Surgeon Frederic Russo DO Janitor Cleaner John Barragan PA-C Estimated Blood Loss 150 Findings Consistent with Post-Op Diagnosis Specimens Left femoral head Description of Procedure Implants used I used a ZimmerBiomet total hip arthroplasty system with a size 5 standard offset Avenir Complete stem, a 54 mm G7 cup with a 25mm screw, an E1 polyethylene liner, a 40 mm ceramic head with a +3.5 neck. Anastacio arrived at the hospital for the above procedure. He was seen in the preoperative holding area and the operative extremity was identified and signed. He was given a spinal anesthetic, a preoperative antibiotic, and TXA. He was then taken back to the operating room and laid on the table in the supine position. He was given basic sedation. The operative leg was secured to a Puristst leg positioner. The hip was then prepped and draped in sterile fashion. A timeout was done and the patient and the operative extremity was properly identified. An anterior approach was used. Dissection was taken down through the fascia and the tensor muscle belly was retracted laterally and the rectus was retracted medially. The circumflex vessels were identified and ligated. The capsule was then incised and tagged for later repair. The femoral neck was then cut and the femoral head was removed. The acetabulum was exposed. Time was spent doing a complete circumferential labral release. Sequential reaming of the acetabulum up to a size 53 reamer was done. Final reamings were done under fluoroscopy to ensure appropriate version. A Biomet 54 mm G7 cup was then impacted into place. A single 25 mm screw was placed. The E1 polyethylene liner was then snapped into place. Surrounding soft tissues were then injected with 100 cc of an orthopedic pain control cocktail. The proximal femur was then exposed. Sequential broaching up to a size 5 broach was done. Off that broach a size 40 head with a +3.5 neck was trialed. The hip was reduced and fluoroscopic images showed anatomic alignment of the implants in acceptable length. The broach was removed. The final size 5 standard offset Avenir Complete stem was then impacted into place. A ceramic 40 mm head with a +3.5 neck was then impacted onto the stem and the hip was reduced. Final fluoroscopic images showed anatomic alignment of the hip. The capsule was then closed with #1 Vicryl suture. A dilute betadyne lavage was then done for 3 minutes. The joint was then irrigated with normal saline solution. The fascia was closed with #1 PDS suture. Skin was closed with 2-0 Vicryl, jasiel, and a Silverlon dressing. He was then transferred to a hospital bed and taken to the post anesthesia care unit in stable condition. He tolerated the procedure well. John Barragan PA-C, was present for the entire procedure. He was critical for patient positioning, prepping, draping, retraction exposure, wound closure and application of sterile dressing. I attest to the content of the Intraoperative Record and any orders documented therein. Any exceptions are noted below.
[2024-02-20] MEDS ORDERED: PHENYLEPHRINE 100MCG/ML 5ML SYR ONE (08:10)
--- NOTE | 2024-02-20 08:19 | Fluoroscopy Report ---
FL hip LT 1V CLINICAL HISTORY: LEFT ANTERIOR COMPARISON STUDY: Left hip radiographs July 23, 2023. FLUOROSCOPY TIME: 13 seconds. Ka,r: 1.4271 mGy FLUOROSCOPIC IMAGES: 1. FINDINGS: Fluoroscopy was provided during anterior total left hip arthroplasty. Hardware is intact. T here are no fractures. There are no unexpected radiopaque foreign bodies. IMPRESSION: Fluoroscopy provided during anterior total left hip arthroplasty. ACT 112: Negative or not required by law. Electronically signed by: Valdemar Miller M.D. 02/20/2024 8:17 AM
--- NOTE | 2024-02-20 08:50 | Anesthesiology Progress Note ---
Date of Service February 20, 2024 Anesthesia Post Procedure Vital Signs Vital Signs: Temp Pulse Pulse Resp BP Pulse Ox O2 Del Method 02/20/24 08:40 89 15 121/73 95 Room Air 02/20/24 08:30 108 H 19 112/61 96 Oxymask 02/20/24 08:24 36.0 C L 96 H 14 113/73 95 Oxymask 02/20/24 05:44 36.9 C 104 H 20 131/83 94 Room Air O2 Flow Rate 02/20/24 08:40 02/20/24 08:30 4 02/20/24 08:24 4 02/20/24 05:44 Pain Intensity Left Hip: Pain Intensity: 4 Transfer of Care Handoff Completed per policy Notes Mental Status: alert / awake / arousable and participated in evaluation Patient Amnestic to Procedure: Yes Nausea / Vomiting: adequately controlled Pain: adequately controlled Airway Patency, RR, SpO2: stable & adequate BP & HR: stable & adequate Hydration State: stable & adequate Neuraxial Anesthesia: was administered and sensory block is resolving Anesthetic Complications: no major complications apparent and Pt Satisfied with anesthetic care
--- NOTE | 2024-02-20 08:54 | XRay Report ---
XR hip 1V LT w pelvis CLINICAL HISTORY: Postoperative evaluation. COMPARISON: Left hip radiographs July 23, 2023 and January 21, 2024. FINDINGS: Alignment of the total left hip arthroplasty is anatomic. There is no periprosthetic fract ure or unexpected radiopaque foreign body. There are skin jasiel. IMPRESSION: Expected findings following total left hip arthroplasty. ACT 112: Negative or not required by law. Electronically signed by: Valdemar Miller M.D. 02/20/2024 8:52 AM
[2024-02-20] MEDS ORDERED: traMADol HCL 50 MG TABLET PO PRN (09:31)
[2024-02-20] MEDS ORDERED: oxyCODONE HCL IR 5 MG TAB (IMMEDIATE RELEASE) PO PRN (09:31)
[2024-02-20] MEDS ORDERED: MAGNESIUM HYDROXIDE SUSP 30 ML UDC PO PRN (09:31)
[2024-02-20] MEDS ORDERED: HYDROmorphone INJ 0.5 MG/0.5 ML SYR IV PRN (09:31)
[2024-02-20] MEDS ORDERED: NALOXONE HCL 0.4 MG/1 ML VIAL/CARP IV PRN (09:31)
[2024-02-20] MEDS ORDERED: DOCUSATE SODIUM 100 MG CAP PO PRN (09:31)
[2024-02-20] MEDS ORDERED: METOCLOPRAMIDE HCL INJ 5 MG/ML 2 ML VIAL IV PRN (09:31)
[2024-02-20] MEDS ORDERED: bisacodyL 10 MG SUPP PR PRN (09:31)
[2024-02-20] MEDS ORDERED: ALPRAZolam 0.5 MG TABLET PO PRN (09:31)
[2024-02-20] MEDS: ATORVASTATIN 20 MG TAB PO SCH (09:52)
[2024-02-20] MEDS: PANTOprazole 40 MG TAB PO SCH (09:53)
[2024-02-20] MEDS: MULTIVITAMIN TAB PO SCH (10:25)
[2024-02-20] MEDS: ASPIRIN 81 MG ECTAB PO SCH (10:25)
[2024-02-20] MEDS: DOCUSATE SODIUM 100 MG CAP PO SCH (10:25)
[2024-02-20] MEDS: LOSARTAN POTASSIUM 50 MG TAB PO SCH (10:25)
[2024-02-20] MEDS: KETOROLAC TROMETHAMINE 15 MG/ML VIAL IV SCH (11:25)
[2024-02-20] MEDS: ceFAZolin 1000MG 1,000 MG/7.5 ML SYR IV SCH (15:56)
[2024-02-20 19:19] VITALS: RESP 18
[2024-02-20] MEDS: SENNA 8.6 MG TAB PO SCH (21:18)
[2024-02-21 07:35] VITALS: BP 160/81; PULSE 79; TEMP 98.2; O2SAT 95
[2024-02-21] MEDS: dexAMETHasone 4 MG TAB PO SCH (08:05)
[2024-02-21] MEDS: PANTOprazole 40 MG TAB PO SCH (08:05)
--- NOTE | 2024-02-21 08:15 | Orthopedic Progress Note ---
Date of Service February 21, 2024 Assessment & Plan (1) Status post left hip replacement: Overall he is doing fairly well. He is not having much pain in the left hip. He will be seen by physical therapy today for ambulation and range of motion exercises. He is on aspirin for DVT prophylaxis. He can be discharged to home later today. He will follow-up orthopedics in 2 weeks. Roxanne Chaves was seen and examined at bedside this morning. Overall he is doing fairly well. He is not having much pain in the left hip. He has been up and ambulating to the bathroom. He has no complaints.. Review of Systems All systems reviewed & are unremarkable except as noted in HPI & below. Physical Exam On physical exam of the left hip, the dressing is clean and dry. His leg is out full extension. He has active dorsiflexion and plantarflexion of his left ankle.. Results & Data Results & Data Laboratory Results . Diagnostic Findings Postoperative x-rays of the left hip show the prosthesis to be in anatomic alignment without any evidence of fracture complication, or loosening.. PG Care Time/CCT Total # of Minutes Spent Total Time Spent with Patient: Total time spent is greater than 50% in coordination of care (as documented) at patient's floor/unit and/or counseling patient: Coding Level of Care Code 42114 Post Operative Follow-Up Diagnoses Status post left hip replacement Z96.642
--- NOTE | 2024-02-21 08:16 | Discharge Summary ---
Date of Service February 21, 2024 Principal Diagnosis Same as "Discharge Diagnosis" noted below under Discharge Instructions. Discharge Exam On physical exam of the left hip, the dressing is clean and dry. His leg is out full extension. He has active dorsiflexion and plantarflexion of his left ankle.. Discharge Data Procedures Performed Operation Date: 02/20/24 07:00 Actual Procedures p Left Anterior Total Hip Arthroplasty(Left) - Frederic Russo DO Ordered Studies 02/20/24 07:00 FL hip LT 1V Routine Hospital Course (1) Status post left hip replacement: On February 20, 2024 Anastacio arrived at [facility] and underwent a left hip replacement without complication. He had a spinal anesthetic. Postoperatively he was started on aspirin for DVT prophylaxis and transferred to the general orthopedic floors. His hospital course was uneventful. On postop day #1, his vital signs were stable and his pain was well-controlled. He was able to participate well with physical therapy doing ambulation and range of motion exercises. He was then discharged to home. He will follow-up orthopedics in 2 weeks. PG Care Time/CCT Total # of Minutes Spent Total Time Spent with Patient: Total time spent is greater than 50% in coordination of care (as documented) at patient's floor/unit and/or counseling patient: Discharge Plan Discharge Items Patient Disposition: Home - Self-Care Reason For Visit: Left Hip Arthritis Discharge Diagnosis: Left hip replacement Activity: Per Instructions section Non-emergency contact: Surgeon Call non-emergency contact if: your wound has increased redness and your wound has increased drainage Follow-up/Referrals: Sonya Moore MD [Primary Care Provider] - Diet: Regular Addtl Attending Provider Instructions: Activity and Therapy Recommendations: * If you are using [facility] then therapy will be provided at your home until they feel you have accomplished all of your goals. * If you are using [facility] then Physical Therapy will be provided until they feel you are ready to start Outpatient Physical Therapy. * If you are not using home therapy then Outpatient Physical Therapy should start about 3-5 days from your day of surgery. Therapy will last about 6-10 weeks * You were shown a series of exercises in the hospital. Do these exercises three times each day including the exercises you were shown in physical therapy. * Get up and walk several times each day.~ For the first four weeks, try not to stand or walk for more than one hour at a time. If you do stand or walk for more than one hour, you will not hurt anything, but your leg will likely swell.~~ * As you feel comfortable, you may change from the walker or crutches to a cane and~then to independent walking. Medications: * Narcotic You will likely be sent home from the hospital with a prescription for the narcotic pain medication that worked best throughout your stay. * Cefadroxil -take the antibiotic twice a day for 10 days to help prevent infection. * Aspirin Most patients will be required to take Aspirin 81mg twice a day for 6 weeks after surgery. This is obtained [id number] and a prescription is not necessary. * Other medications may be prescribed for specific circumstances. If you have any questions, please call the office at . * Resume previous home medications unless otherwise instructed TEDs/Elastic Stockings: The white elastic stockings help limit swelling and prevent blood clots from forming in your legs. The more you wear them, the more they work. Wear them for six weeks. Dressing Care: Leave the Silverlon dressing in place for 7 days. After 7 days you may remove the dressing. If the incision is not draining then you may leave the jasiel open to air. If there is a little bit of drainage or if the jasiel are getting stuck on your clothing then cover the incision with a dry dressing. The jasiel will be removed at your 2 week follow-up appointment. Showering: You may shower with the Silverlon dressing in place. Do not let the shower spray hit the dressing directly. Pat the Silverlon dressing dry. If the dressing becomes wet underneath, then simply remove the dressing. Keep the incision dry until you are 7 days out from the day of surgery. After 7 days you may remove the Silverlon dressing and shower with the jasiel exposed. Let soapy water run over the jasiel and pat them dry. Do not scrub or soak the incision. Diet: You may resume your previous diet. Things To Watch For: * Drainage from the incision site that occurs more than one week after your surgery. * Increased redness at the incision site. * Fever above 102 degrees Fahrenheit. * Unusual chest pain or shortness of breath. * Call [facility] at with any of the above problems Follow-Up Visit: Follow-up with Dr. Russo's office 2-3 weeks after your day of surgery. We will remove your jasiel and answer any questions. If you have any additional questions or concerns, Dr Russo is usually in the office at the same time and will be available An appointment was probably scheduled when you signed-up for surgery in the office. If you have any questions call Office Instructions: More detailed instructions as well as Frequently Asked Questions were provided in a folder by our office when you signed-up for surgery. Please review these instructions when you get home. If you have any further questions or concerns, please feel free to call the office at [phone] Pending Studies at Discharge: No Stand-Alone Forms: My [facility] [employer]fluence, Smoking Cessation Medications and DC Order Prescriptions: New cefadroxil 500 mg capsule 500 mg PO BID 10 Days Qty: 20 0RF aspirin 81 mg Tablet,Delayed Release (Dr/Ec) 81 mg PO BID 42 Days Qty: 84 0RF Continued cyclobenzaprine 10 mg tablet 10 mg PO .QD-BID PRN (Reason: muscle spasm) Qty: 60 1RF celecoxib [Celebrex] 200 mg capsule 200 mg PO QAM Qty: 90 3RF alprazolam [Xanax] 1 mg tablet 1 mg PO UD PRN (Reason: Anxiety) Qty: 4 0RF Rx Instructions: One tab 1/2 to one hour prior to flight. losartan 100 mg tablet 100 mg PO QAM Qty: 90 3RF tramadol 50 mg tablet 50 mg PO Q6H PRN (Reason: pain) Qty: 50 0RF pantoprazole 20 mg tablet,delayed release (DR/EC) 20 mg PO QAM docusate sodium [Stool Softener] 100 mg Capsule 100 mg PO DAILY PRN (Reason: Constipation) atorvastatin [Lipitor] 20 mg tablet 20 mg PO QAM oxycodone 5 mg Tablet 5 mg PO Q6H PRN (Reason: Pain) Qty: 30 0RF Admission Data Admit Date/Time: 02/20/24 08:29 Attending Provider: Frederic Russo Admit Provider: Frederic Russo Primary Care Provider: Sonya Moore
== END 2024-02-21 10:53 | disposition home or self-care (01) ==
LOC: ASU 05:00 → 3E 05:00